=== PATIENT | male | born 1965 | race Caucasian/White ===

== ENCOUNTER 2021-04-24 18:39 | Inpatient (IN) | payer OTHER ==
[2021-04-24 19:08] VITALS: BMI 34.4
[2021-04-24] MEDS ORDERED: MENTHOL/PHENOL 1 EACH UD MM PRN (20:38)
[2021-04-24] MEDS ORDERED: MAGNESIUM HYDROX 2400MG/30ML ORAL SUSPENSION 30 ML CUP PO PRN (20:38)
[2021-04-24] MEDS ORDERED: NICOTINE POLACRILEX 2 MG GUM BUC PRN (20:38)
[2021-04-24] MEDS ORDERED: IBUPROFEN 400 MG TABLET (FP) PO PRN (20:38)
[2021-04-24] MEDS ORDERED: hydrOXYzine PAMOATE 25 MG CAPSULE (FP) PO PRN (20:38)
[2021-04-24] MEDS ORDERED: BISMUTH SUBSALICYLATE 524 MG/30 ML PO PRN (20:38)
[2021-04-24] MEDS ORDERED: MAGNESIUM CITRATE 300 ML BOTTLE PO PRN (20:38)
[2021-04-24] MEDS ORDERED: MAG HYDROX/AL HYDROX/SIMETH 30 ML UNIT-DOSE CUP PO PRN (20:38)
[2021-04-24] MEDS ORDERED: ACETAMINOPHEN 325 MG TABLET (FP) PO PRN (20:38)
[2021-04-24] MEDS ORDERED: ONDANSETRON *ODT* 4 MG TABLET SL PRN (20:38)
[2021-04-24] MEDS ORDERED: cloNIDine HCL 0.1 MG TABLET PO PRN (20:42)
[2021-04-24] MEDS ORDERED: diazePAM 5 MG TABLET PO PRN (20:42)
[2021-04-24] MEDS ORDERED: methaDONE HCL 10 MG TABLET (FOR DETOX USE ONLY) PO ONE (21:30)
[2021-04-24] MEDS ORDERED: MELATONIN 5 MG TABLETS PO SCH (22:00)
[2021-04-24] MEDS: diazePAM 5 MG TABLET PO SCH (22:04)
[2021-04-24] MEDS: THIAMINE HCL 100 MG TABLET (FP) PO SCH (22:04)
[2021-04-25] MEDS: diazePAM 5 MG TABLET PO SCH ×4 (05:36→22:20)
[2021-04-25] MEDS ORDERED: methaDONE HCL 10 MG TABLET (FOR DETOX USE ONLY) ONE (09:38)
[2021-04-25] MEDS: PRENATAL VITAMINS W/ FOLIC ACID TABLET (FP) PO SCH (10:05)
[2021-04-25] MEDS: METHOCARBAMOL 500 MG TABLET PO PRN (10:05)
[2021-04-25] MEDS: ACETAMINOPHEN 325 MG TABLET (FP) PO PRN ×2 (10:09→17:40)
[2021-04-25 10:18] LABS: HEMATOCRIT 42.2 % (35.4-49); HEMOGLOBIN 14.4 GM/dL (11.7-16.9); MCH 26.9 pg (25.7-33.7); MCHC 34.1 g/dl (32.0-35.9); MEAN PLT VOLUME 9.6 fl (7.5-11.1); PLATELET COUNT 221 10^3/uL (134-434); RBC 5.34 M/mm3 (4.00-5.60); WHITE BLOOD COUNT 15.4 K/mm3 (4.0-10.0)
[2021-04-25 11:26] LABS: CALCIUM 9.4 mg/dL (8.5-10.1)
[2021-04-25 11:27] LABS: ALBUMIN 3.7 g/dl (3.4-5.0); BILIRUBIN,TOTAL 0.5 mg/dL (0.2-1); BLOOD UREA NITROGEN 17.6 mg/dL (7-18)
[2021-04-25 11:28] LABS: TOT PROT 7.2 g/dl (6.4-8.2)
[2021-04-25 11:29] LABS: CREATININE 1.1 mg/dL (0.55-1.3)
[2021-04-25 16:47] LABS: HIV INTERPRETATION NEGATIVE (NEGATIVE)
[2021-04-25] MEDS: THIAMINE HCL 100 MG TABLET (FP) PO SCH (22:19)
[2021-04-25] MEDS: MELATONIN 5 MG TABLETS PO SCH (22:21)
[2021-04-26] MEDS: diazePAM 5 MG TABLET PO SCH ×3 (05:13→22:31)
[2021-04-26] MEDS ORDERED: methaDONE HCL 10 MG TABLET (FOR DETOX USE ONLY) PO ONE (10:00)
[2021-04-26] MEDS: METHOCARBAMOL 500 MG TABLET PO PRN (10:14)
[2021-04-26] MEDS: PRENATAL VITAMINS W/ FOLIC ACID TABLET (FP) PO SCH (10:14)
[2021-04-26] MEDS: LISINOPRIL 10 MG TABLET PO SCH (14:54)
[2021-04-26] MEDS: THIAMINE HCL 100 MG TABLET (FP) PO SCH (22:31)
[2021-04-26] MEDS: MELATONIN 5 MG TABLETS PO SCH (22:33)
[2021-04-27] MEDS: diazePAM 5 MG TABLET PO SCH ×2 (05:35→17:54)
[2021-04-27] MEDS ORDERED: methaDONE HCL 10 MG TABLET (FOR DETOX USE ONLY) ONE (09:47)
[2021-04-27] MEDS: PRENATAL VITAMINS W/ FOLIC ACID TABLET (FP) PO SCH (10:11)
[2021-04-27] MEDS: METHOCARBAMOL 500 MG TABLET PO PRN (10:11)
[2021-04-27] MEDS: LISINOPRIL 10 MG TABLET PO SCH (10:12)
[2021-04-27 11:03] LABS: BASO % 0.3 % (0-2.0); EOS % 3.7 % (0-4.5); HEMATOCRIT 42.2 % (35.4-49); HEMOGLOBIN 14.4 GM/dL (11.7-16.9); LYMPH % 25.9 % (8-40); MCH 27.1 pg (25.7-33.7); MCHC 34.1 g/dl (32.0-35.9); MEAN CELL VOLUME 79.3 fl (80-96); MEAN PLT VOLUME 9.5 fl (7.5-11.1); MONO % 10.4 % (3.8-10.2); NEUT % 59.7 % (42.8-82.8); PLATELET COUNT 197 10^3/uL (134-434); RBC 5.32 M/mm3 (4.00-5.60); RDW 14.2 % (11.9-15.9)
[2021-04-27] MEDS: THIAMINE HCL 100 MG TABLET (FP) PO SCH (22:46)
[2021-04-27] MEDS: MELATONIN 5 MG TABLETS PO SCH (22:46)
[2021-04-28] MEDS ORDERED: diazePAM 5 MG TABLET PO ONE (06:00)
[2021-04-28] MEDS ORDERED: methaDONE HCL 10 MG TABLET (FOR DETOX USE ONLY) PO ONE (10:00)
[2021-04-28] MEDS: LISINOPRIL 10 MG TABLET PO SCH (10:08)
[2021-04-28] MEDS: PRENATAL VITAMINS W/ FOLIC ACID TABLET (FP) PO SCH (10:08)
[2021-04-28] MEDS: METHOCARBAMOL 500 MG TABLET PO PRN ×2 (10:08→22:06)
[2021-04-28] MEDS: THIAMINE HCL 100 MG TABLET (FP) PO SCH (22:06)
[2021-04-28] MEDS: MELATONIN 5 MG TABLETS PO SCH (22:06)
[2021-04-29] MEDS: PRENATAL VITAMINS W/ FOLIC ACID TABLET (FP) PO SCH (09:30)
[2021-04-29] MEDS: LISINOPRIL 10 MG TABLET PO SCH (09:30)
[2021-04-29 09:32] VITALS: BP 151/78; PULSE 79; TEMP 98.5
== END 2021-04-29 11:51 | disposition other institution (70) | DRG 773 ==
LOC: YASAS 18:39 → Y6N 20:13
PROVIDERS: ADMIT Allergy & Immunology; ATTEND Allergy & Immunology
PROC: HZ2ZZZZ Detoxification Services for Substance Abuse Treatment (ICD-10-PCS; principal; 2021-04-24)
DX: F11.23 Opioid dependence with withdrawal (principal); F13.230 Sedative, hypnotic or anxiolytic dependence with withdrawal, uncomplicated; F17.210 Nicotine dependence, cigarettes, uncomplicated; F31.9 Bipolar disorder, unspecified; F19.282 Other psychoactive substance dependence with psychoactive substance-induced sleep disorder; D72.829 Elevated white blood cell count, unspecified; I10 Essential (primary) hypertension; R73.9 Hyperglycemia, unspecified; Z88.8 Allergy status to other drugs, medicaments and biological substances
CPT/HCPCS: 36415; 71046-TC-FY; 80053; 82962; 85025; 85027; 86780; 87389; 93005; 93010; C9803; J0735; U0003; U0005

== ENCOUNTER 2021-04-29 11:55 | Inpatient (IN) | payer OTHER ==
[2021-04-29] MEDS ORDERED: MAG HYDROX/AL HYDROX/SIMETH 30 ML UNIT-DOSE CUP PO PRN (13:20)
[2021-04-29] MEDS ORDERED: P-EPHED 60MG/TRIPROLIDI 2.5MG TABLET PO PRN (13:20)
[2021-04-29] MEDS ORDERED: guaiFENesin 200 MG/10 ML 10 ML UNIT-DOSE CUPS PO PRN (13:20)
[2021-04-29] MEDS ORDERED: MAGNESIUM CITRATE 300 ML BOTTLE PO PRN (13:20)
[2021-04-29] MEDS ORDERED: IBUPROFEN 400 MG TABLET (FP) PO PRN (13:20)
[2021-04-29] MEDS ORDERED: LOPERAMIDE HCL 2 MG CAPSULE PO PRN (13:20)
[2021-04-29] MEDS ORDERED: MENTHOL/PHENOL 1 EACH UD MM PRN (13:20)
[2021-04-29] MEDS ORDERED: MAGNESIUM HYDROX 2400MG/30ML ORAL SUSPENSION 30 ML CUP PO PRN (13:20)
[2021-04-29] MEDS: hydrOXYzine PAMOATE 25 MG CAPSULE (FP) PO PRN ×2 (13:48→21:22)
[2021-04-29] MEDS: THIAMINE HCL 100 MG TABLET (FP) PO SCH (21:21)
[2021-04-29] MEDS: MELATONIN 5 MG TABLETS PO SCH (21:21)
[2021-04-30] MEDS: LISINOPRIL 10 MG TABLET PO SCH (10:09)
[2021-04-30] MEDS: PRENATAL VITAMINS W/ FOLIC ACID TABLET (FP) PO SCH (10:09)
[2021-04-30] MEDS: NICOTINE 7 MG/24 HOURS TOPICAL PATCH TD SCH (10:09)
[2021-04-30] MEDS: hydrOXYzine PAMOATE 25 MG CAPSULE (FP) PO PRN ×2 (10:09→16:45)
[2021-04-30] MEDS: ACETAMINOPHEN 325 MG TABLET (FP) PO PRN (10:10)
[2021-04-30] MEDS: THIAMINE HCL 100 MG TABLET (FP) PO SCH (21:21)
[2021-04-30] MEDS: MELATONIN 5 MG TABLETS PO SCH (21:21)
[2021-05-01] MEDS: hydrOXYzine PAMOATE 25 MG CAPSULE (FP) PO PRN ×2 (06:46→21:21)
[2021-05-01] MEDS: PRENATAL VITAMINS W/ FOLIC ACID TABLET (FP) PO SCH (09:42)
[2021-05-01] MEDS: LISINOPRIL 10 MG TABLET PO SCH (09:42)
[2021-05-01] MEDS: NICOTINE 7 MG/24 HOURS TOPICAL PATCH TD SCH (09:43)
[2021-05-01] MEDS: ACETAMINOPHEN 325 MG TABLET (FP) PO PRN (09:43)
[2021-05-01] MEDS ORDERED: BUPRENORPHINE/NALOXONE 2 MG/0.5 MG FILM PACKET SL ONE (10:29)
[2021-05-01] MEDS ORDERED: BUPRENORPHINE/NALOXONE 4 MG/1 MG FILM PACKET SL ONE (14:00)
[2021-05-01] MEDS: MELATONIN 5 MG TABLETS PO SCH (21:21)
[2021-05-01] MEDS: THIAMINE HCL 100 MG TABLET (FP) PO SCH (21:21)
[2021-05-02] MEDS: hydrOXYzine PAMOATE 25 MG CAPSULE (FP) PO PRN ×2 (06:28→21:15)
[2021-05-02] MEDS: PRENATAL VITAMINS W/ FOLIC ACID TABLET (FP) PO SCH (10:17)
[2021-05-02] MEDS: NICOTINE 7 MG/24 HOURS TOPICAL PATCH TD SCH (10:18)
[2021-05-02] MEDS: BUPRENORPHINE/NALOXONE 4 MG/1 MG FILM PACKET SL SCH ×2 (10:21→21:15)
[2021-05-02] MEDS: LISINOPRIL 10 MG TABLET PO SCH (10:21)
[2021-05-02] MEDS: THIAMINE HCL 100 MG TABLET (FP) PO SCH (21:14)
[2021-05-02] MEDS: MELATONIN 5 MG TABLETS PO SCH (21:14)
[2021-05-03] MEDS: hydrOXYzine PAMOATE 25 MG CAPSULE (FP) PO PRN ×3 (05:51→21:28)
[2021-05-03] MEDS: NICOTINE 10 MG CARTRIDGE (INHALER) IH PRN ×2 (09:50→17:52)
[2021-05-03] MEDS: PRENATAL VITAMINS W/ FOLIC ACID TABLET (FP) PO SCH (09:50)
[2021-05-03] MEDS: LISINOPRIL 10 MG TABLET PO SCH (09:50)
[2021-05-03] MEDS: NICOTINE 7 MG/24 HOURS TOPICAL PATCH TD SCH (09:50)
[2021-05-03] MEDS: BUPRENORPHINE/NALOXONE 4 MG/1 MG FILM PACKET SL SCH ×2 (09:52→21:28)
[2021-05-03] MEDS: THIAMINE HCL 100 MG TABLET (FP) PO SCH (21:27)
[2021-05-03] MEDS: MELATONIN 5 MG TABLETS PO SCH (21:28)
[2021-05-04] MEDS: BUPRENORPHINE/NALOXONE 4 MG/1 MG FILM PACKET SL SCH ×2 (10:06→21:13)
[2021-05-04] MEDS: PRENATAL VITAMINS W/ FOLIC ACID TABLET (FP) PO SCH (10:06)
[2021-05-04] MEDS: hydrOXYzine PAMOATE 25 MG CAPSULE (FP) PO PRN ×2 (10:07→21:13)
[2021-05-04] MEDS: NICOTINE 7 MG/24 HOURS TOPICAL PATCH TD SCH (10:07)
[2021-05-04] MEDS: LISINOPRIL 10 MG TABLET PO SCH (10:07)
[2021-05-04] MEDS: NICOTINE 10 MG CARTRIDGE (INHALER) IH PRN (10:07)
[2021-05-04] MEDS: THIAMINE HCL 100 MG TABLET (FP) PO SCH (21:13)
[2021-05-04] MEDS: MELATONIN 5 MG TABLETS PO SCH (21:13)
[2021-05-05] MEDS: LISINOPRIL 10 MG TABLET PO SCH (09:58)
[2021-05-05] MEDS: PRENATAL VITAMINS W/ FOLIC ACID TABLET (FP) PO SCH (09:58)
[2021-05-05] MEDS: NICOTINE 7 MG/24 HOURS TOPICAL PATCH TD SCH (09:58)
[2021-05-05] MEDS: BUPRENORPHINE/NALOXONE 4 MG/1 MG FILM PACKET SL SCH ×2 (09:58→21:26)
[2021-05-05] MEDS: hydrOXYzine PAMOATE 25 MG CAPSULE (FP) PO PRN (17:41)
[2021-05-05] MEDS: NICOTINE 10 MG CARTRIDGE (INHALER) IH PRN (17:41)
[2021-05-05] MEDS: MELATONIN 5 MG TABLETS PO SCH (21:25)
[2021-05-05] MEDS: THIAMINE HCL 100 MG TABLET (FP) PO SCH (21:25)
[2021-05-06] MEDS: NICOTINE 10 MG CARTRIDGE (INHALER) IH PRN (10:20)
[2021-05-06] MEDS: PRENATAL VITAMINS W/ FOLIC ACID TABLET (FP) PO SCH (10:20)
[2021-05-06] MEDS: NICOTINE 7 MG/24 HOURS TOPICAL PATCH TD SCH (10:21)
[2021-05-06] MEDS: BUPRENORPHINE/NALOXONE 4 MG/1 MG FILM PACKET SL SCH ×2 (10:21→21:19)
[2021-05-06] MEDS: LISINOPRIL 10 MG TABLET PO SCH (10:21)
[2021-05-06] MEDS: hydrOXYzine PAMOATE 25 MG CAPSULE (FP) PO PRN ×2 (10:22→21:19)
[2021-05-06] MEDS: THIAMINE HCL 100 MG TABLET (FP) PO SCH (21:19)
[2021-05-06] MEDS: MELATONIN 5 MG TABLETS PO SCH (21:19)
[2021-05-07] MEDS: NICOTINE 7 MG/24 HOURS TOPICAL PATCH TD SCH (09:26)
[2021-05-07] MEDS: NICOTINE 10 MG CARTRIDGE (INHALER) IH PRN (09:26)
[2021-05-07] MEDS: PRENATAL VITAMINS W/ FOLIC ACID TABLET (FP) PO SCH (09:26)
[2021-05-07] MEDS: BUPRENORPHINE/NALOXONE 4 MG/1 MG FILM PACKET SL SCH ×2 (09:26→21:19)
[2021-05-07] MEDS: LISINOPRIL 10 MG TABLET PO SCH (09:26)
[2021-05-07] MEDS: MELATONIN 5 MG TABLETS PO SCH (21:19)
[2021-05-07] MEDS: THIAMINE HCL 100 MG TABLET (FP) PO SCH (21:19)
[2021-05-08] MEDS: hydrOXYzine PAMOATE 25 MG CAPSULE (FP) PO PRN ×3 (03:23→21:29)
[2021-05-08] MEDS: BUPRENORPHINE/NALOXONE 4 MG/1 MG FILM PACKET SL SCH ×2 (09:43→21:30)
[2021-05-08] MEDS: NICOTINE 10 MG CARTRIDGE (INHALER) IH PRN (09:44)
[2021-05-08] MEDS: PRENATAL VITAMINS W/ FOLIC ACID TABLET (FP) PO SCH (09:44)
[2021-05-08] MEDS: LISINOPRIL 10 MG TABLET PO SCH (09:44)
[2021-05-08] MEDS: NICOTINE 7 MG/24 HOURS TOPICAL PATCH TD SCH (09:47)
[2021-05-08] MEDS: cloNIDine HCL 0.1 MG TABLET PO PRN (16:19)
[2021-05-08] MEDS: THIAMINE HCL 100 MG TABLET (FP) PO SCH (21:29)
[2021-05-08] MEDS: MELATONIN 5 MG TABLETS PO SCH (21:30)
[2021-05-09] MEDS: PRENATAL VITAMINS W/ FOLIC ACID TABLET (FP) PO SCH (10:17)
[2021-05-09] MEDS: NICOTINE 7 MG/24 HOURS TOPICAL PATCH TD SCH (10:17)
[2021-05-09] MEDS: LISINOPRIL 10 MG TABLET PO SCH (10:18)
[2021-05-09] MEDS: BUPRENORPHINE/NALOXONE 4 MG/1 MG FILM PACKET SL SCH ×2 (10:18→21:07)
[2021-05-09] MEDS: hydrOXYzine PAMOATE 25 MG CAPSULE (FP) PO PRN ×2 (10:19→21:07)
[2021-05-09] MEDS: cloNIDine HCL 0.1 MG TABLET PO PRN (21:08)
[2021-05-09] MEDS: SUVOREXANT 10 MG TABLET PO PRN (21:08)
[2021-05-09] MEDS: THIAMINE HCL 100 MG TABLET (FP) PO SCH (21:08)
[2021-05-10] MEDS: LISINOPRIL 10 MG TABLET PO SCH (10:42)
[2021-05-10] MEDS: PRENATAL VITAMINS W/ FOLIC ACID TABLET (FP) PO SCH (10:42)
[2021-05-10] MEDS: NICOTINE 7 MG/24 HOURS TOPICAL PATCH TD SCH (10:42)
[2021-05-10] MEDS: BUPRENORPHINE/NALOXONE 4 MG/1 MG FILM PACKET SL SCH ×2 (10:42→21:14)
[2021-05-10] MEDS: cloNIDine HCL 0.1 MG TABLET PO PRN ×2 (10:43→21:14)
[2021-05-10] MEDS: hydrOXYzine PAMOATE 25 MG CAPSULE (FP) PO PRN ×2 (10:43→21:13)
[2021-05-10] MEDS: NICOTINE 10 MG CARTRIDGE (INHALER) IH PRN ×2 (10:50→18:43)
[2021-05-10] MEDS: THIAMINE HCL 100 MG TABLET (FP) PO SCH (21:13)
[2021-05-10] MEDS: SUVOREXANT 10 MG TABLET PO PRN (21:14)
[2021-05-11] MEDS: PRENATAL VITAMINS W/ FOLIC ACID TABLET (FP) PO SCH (09:59)
[2021-05-11] MEDS: NICOTINE 7 MG/24 HOURS TOPICAL PATCH TD SCH (09:59)
[2021-05-11] MEDS: cloNIDine HCL 0.1 MG TABLET PO PRN ×2 (10:00→21:09)
[2021-05-11] MEDS: hydrOXYzine PAMOATE 25 MG CAPSULE (FP) PO PRN ×2 (10:00→21:09)
[2021-05-11] MEDS: LISINOPRIL 10 MG TABLET PO SCH (10:00)
[2021-05-11] MEDS: BUPRENORPHINE/NALOXONE 4 MG/1 MG FILM PACKET SL SCH ×2 (10:01→21:09)
[2021-05-11] MEDS: NICOTINE 10 MG CARTRIDGE (INHALER) IH PRN ×2 (10:01→18:43)
[2021-05-11] MEDS: THIAMINE HCL 100 MG TABLET (FP) PO SCH (21:09)
[2021-05-11] MEDS: SUVOREXANT 10 MG TABLET PO PRN (21:09)
[2021-05-12] MEDS: PRENATAL VITAMINS W/ FOLIC ACID TABLET (FP) PO SCH (09:50)
[2021-05-12] MEDS: hydrOXYzine PAMOATE 25 MG CAPSULE (FP) PO PRN ×2 (09:50→21:12)
[2021-05-12] MEDS: BUPRENORPHINE/NALOXONE 4 MG/1 MG FILM PACKET SL SCH ×2 (09:51→21:13)
[2021-05-12] MEDS: LISINOPRIL 10 MG TABLET PO SCH (09:51)
[2021-05-12] MEDS: NICOTINE 10 MG CARTRIDGE (INHALER) IH PRN ×2 (09:52→21:12)
[2021-05-12] MEDS: NICOTINE 7 MG/24 HOURS TOPICAL PATCH TD SCH (10:21)
[2021-05-12] MEDS: THIAMINE HCL 100 MG TABLET (FP) PO SCH (21:12)
[2021-05-12] MEDS: cloNIDine HCL 0.1 MG TABLET PO PRN (21:12)
[2021-05-12] MEDS: SUVOREXANT 10 MG TABLET PO PRN (21:13)
[2021-05-13] MEDS: PRENATAL VITAMINS W/ FOLIC ACID TABLET (FP) PO SCH (09:50)
[2021-05-13] MEDS: BUPRENORPHINE/NALOXONE 4 MG/1 MG FILM PACKET SL SCH ×2 (09:50→21:18)
[2021-05-13] MEDS: NICOTINE 7 MG/24 HOURS TOPICAL PATCH TD SCH (09:51)
[2021-05-13] MEDS: hydrOXYzine PAMOATE 25 MG CAPSULE (FP) PO PRN ×2 (09:51→21:17)
[2021-05-13] MEDS: LISINOPRIL 10 MG TABLET PO SCH (09:51)
[2021-05-13] MEDS: NICOTINE 10 MG CARTRIDGE (INHALER) IH PRN (09:52)
[2021-05-13] MEDS: SUVOREXANT 10 MG TABLET PO PRN (21:17)
[2021-05-13] MEDS: THIAMINE HCL 100 MG TABLET (FP) PO SCH (21:17)
[2021-05-14] MEDS: hydrOXYzine PAMOATE 25 MG CAPSULE (FP) PO PRN ×2 (09:59→21:18)
[2021-05-14] MEDS: NICOTINE 7 MG/24 HOURS TOPICAL PATCH TD SCH (09:59)
[2021-05-14] MEDS: PRENATAL VITAMINS W/ FOLIC ACID TABLET (FP) PO SCH (09:59)
[2021-05-14] MEDS: LISINOPRIL 10 MG TABLET PO SCH (10:00)
[2021-05-14] MEDS: NICOTINE 10 MG CARTRIDGE (INHALER) IH PRN ×2 (10:01→21:18)
[2021-05-14] MEDS: BUPRENORPHINE/NALOXONE 4 MG/1 MG FILM PACKET SL SCH ×2 (10:01→21:18)
[2021-05-14] MEDS: SUVOREXANT 10 MG TABLET PO PRN (21:17)
[2021-05-14] MEDS: THIAMINE HCL 100 MG TABLET (FP) PO SCH (21:18)
[2021-05-15] MEDS: NICOTINE 7 MG/24 HOURS TOPICAL PATCH TD SCH (09:57)
[2021-05-15] MEDS: PRENATAL VITAMINS W/ FOLIC ACID TABLET (FP) PO SCH (09:57)
[2021-05-15] MEDS: LISINOPRIL 10 MG TABLET PO SCH (09:58)
[2021-05-15] MEDS: cloNIDine HCL 0.1 MG TABLET PO PRN ×2 (09:58→21:12)
[2021-05-15] MEDS: hydrOXYzine PAMOATE 25 MG CAPSULE (FP) PO PRN ×2 (09:58→21:12)
[2021-05-15] MEDS: BUPRENORPHINE/NALOXONE 4 MG/1 MG FILM PACKET SL SCH ×2 (09:58→21:12)
[2021-05-15] MEDS ORDERED: MODERNA COVID-19 VACC,MRNA/PF 50 MCG/0.25 ML EACH IM ONE (11:00)
[2021-05-15] MEDS: NICOTINE 10 MG CARTRIDGE (INHALER) IH PRN ×2 (11:21→21:13)
[2021-05-15] MEDS: THIAMINE HCL 100 MG TABLET (FP) PO SCH (21:10)
[2021-05-15] MEDS: SUVOREXANT 10 MG TABLET PO PRN (21:11)
[2021-05-15] MEDS ORDERED: SUVOREXANT 10 MG TABLET PO PRN (22:00)
[2021-05-16] MEDS: PRENATAL VITAMINS W/ FOLIC ACID TABLET (FP) PO SCH (09:48)
[2021-05-16] MEDS: NICOTINE 10 MG CARTRIDGE (INHALER) IH PRN (09:49)
[2021-05-16] MEDS: hydrOXYzine PAMOATE 25 MG CAPSULE (FP) PO PRN ×2 (09:49→21:20)
[2021-05-16] MEDS: BUPRENORPHINE/NALOXONE 8 MG/2 MG FILM PACKET SL SCH (09:50)
[2021-05-16] MEDS: NICOTINE 7 MG/24 HOURS TOPICAL PATCH TD SCH (09:50)
[2021-05-16] MEDS: LISINOPRIL 10 MG TABLET PO SCH (11:11)
[2021-05-16] MEDS: THIAMINE HCL 100 MG TABLET (FP) PO SCH (21:19)
[2021-05-16] MEDS: cloNIDine HCL 0.1 MG TABLET PO PRN (21:20)
[2021-05-16] MEDS: SUVOREXANT 10 MG TABLET PO PRN (21:20)
[2021-05-17] MEDS: LISINOPRIL 10 MG TABLET PO SCH (09:53)
[2021-05-17] MEDS: BUPRENORPHINE/NALOXONE 8 MG/2 MG FILM PACKET SL SCH (09:53)
[2021-05-17] MEDS: hydrOXYzine PAMOATE 25 MG CAPSULE (FP) PO PRN ×2 (09:53→21:09)
[2021-05-17] MEDS: cloNIDine HCL 0.1 MG TABLET PO PRN ×2 (09:53→21:10)
[2021-05-17] MEDS: PRENATAL VITAMINS W/ FOLIC ACID TABLET (FP) PO SCH (09:53)
[2021-05-17] MEDS: NICOTINE 10 MG CARTRIDGE (INHALER) IH PRN ×2 (09:54→21:10)
[2021-05-17] MEDS: NICOTINE 7 MG/24 HOURS TOPICAL PATCH TD SCH (09:54)
[2021-05-17] MEDS: SUVOREXANT 10 MG TABLET PO PRN (21:10)
[2021-05-17] MEDS: THIAMINE HCL 100 MG TABLET (FP) PO SCH (21:10)
[2021-05-18] MEDS: PRENATAL VITAMINS W/ FOLIC ACID TABLET (FP) PO SCH (10:02)
[2021-05-18] MEDS: LISINOPRIL 10 MG TABLET PO SCH (10:02)
[2021-05-18] MEDS: NICOTINE 7 MG/24 HOURS TOPICAL PATCH TD SCH (10:02)
[2021-05-18] MEDS: BUPRENORPHINE/NALOXONE 8 MG/2 MG FILM PACKET SL SCH (10:03)
[2021-05-18] MEDS: hydrOXYzine PAMOATE 25 MG CAPSULE (FP) PO PRN ×2 (10:04→21:13)
[2021-05-18] MEDS: NICOTINE 10 MG CARTRIDGE (INHALER) IH PRN ×2 (10:05→21:13)
[2021-05-18] MEDS: cloNIDine HCL 0.1 MG TABLET PO PRN ×2 (12:55→21:12)
[2021-05-18] MEDS: SUVOREXANT 10 MG TABLET PO PRN (21:12)
[2021-05-18] MEDS: THIAMINE HCL 100 MG TABLET (FP) PO SCH (21:13)
[2021-05-19] MEDS: NICOTINE 10 MG CARTRIDGE (INHALER) IH PRN ×3 (09:49→21:12)
[2021-05-19] MEDS: LISINOPRIL 10 MG TABLET PO SCH (09:49)
[2021-05-19] MEDS: PRENATAL VITAMINS W/ FOLIC ACID TABLET (FP) PO SCH (09:49)
[2021-05-19] MEDS: NICOTINE 7 MG/24 HOURS TOPICAL PATCH TD SCH (09:49)
[2021-05-19] MEDS: BUPRENORPHINE/NALOXONE 8 MG/2 MG FILM PACKET SL SCH (09:50)
[2021-05-19] MEDS: hydrOXYzine PAMOATE 25 MG CAPSULE (FP) PO PRN ×2 (09:50→21:12)
[2021-05-19] MEDS: cloNIDine HCL 0.1 MG TABLET PO PRN (17:40)
[2021-05-19] MEDS: THIAMINE HCL 100 MG TABLET (FP) PO SCH (21:12)
[2021-05-19] MEDS: SUVOREXANT 10 MG TABLET PO PRN (21:12)
[2021-05-20] MEDS: NICOTINE 10 MG CARTRIDGE (INHALER) IH PRN ×2 (09:54→21:10)
[2021-05-20] MEDS: BUPRENORPHINE/NALOXONE 8 MG/2 MG FILM PACKET SL SCH (09:54)
[2021-05-20] MEDS: hydrOXYzine PAMOATE 25 MG CAPSULE (FP) PO PRN ×2 (09:55→21:10)
[2021-05-20] MEDS: PRENATAL VITAMINS W/ FOLIC ACID TABLET (FP) PO SCH (09:55)
[2021-05-20] MEDS: LISINOPRIL 10 MG TABLET PO SCH (09:55)
[2021-05-20] MEDS: NICOTINE 7 MG/24 HOURS TOPICAL PATCH TD SCH (09:55)
[2021-05-20] MEDS: THIAMINE HCL 100 MG TABLET (FP) PO SCH (21:09)
[2021-05-20] MEDS: SUVOREXANT 10 MG TABLET PO PRN (21:10)
[2021-05-20] MEDS: cloNIDine HCL 0.1 MG TABLET PO PRN (21:10)
[2021-05-21] MEDS: PRENATAL VITAMINS W/ FOLIC ACID TABLET (FP) PO SCH (09:41)
[2021-05-21] MEDS: BUPRENORPHINE/NALOXONE 8 MG/2 MG FILM PACKET SL SCH (09:41)
[2021-05-21] MEDS: LISINOPRIL 10 MG TABLET PO SCH (09:41)
[2021-05-21] MEDS: NICOTINE 7 MG/24 HOURS TOPICAL PATCH TD SCH (09:41)
[2021-05-21] MEDS: NICOTINE 10 MG CARTRIDGE (INHALER) IH PRN (09:41)
[2021-05-21] MEDS: hydrOXYzine PAMOATE 25 MG CAPSULE (FP) PO PRN ×2 (09:42→21:08)
[2021-05-21] MEDS: THIAMINE HCL 100 MG TABLET (FP) PO SCH (21:08)
[2021-05-21] MEDS: cloNIDine HCL 0.1 MG TABLET PO PRN (21:08)
[2021-05-21] MEDS: SUVOREXANT 10 MG TABLET PO PRN (21:08)
[2021-05-22] MEDS: ACETAMINOPHEN 325 MG TABLET (FP) PO PRN (06:33)
[2021-05-22] MEDS: PRENATAL VITAMINS W/ FOLIC ACID TABLET (FP) PO SCH (09:59)
[2021-05-22] MEDS: BUPRENORPHINE/NALOXONE 8 MG/2 MG FILM PACKET SL SCH (09:59)
[2021-05-22] MEDS: NICOTINE 7 MG/24 HOURS TOPICAL PATCH TD SCH (09:59)
[2021-05-22] MEDS: LISINOPRIL 10 MG TABLET PO SCH (09:59)
[2021-05-22] MEDS: cloNIDine HCL 0.1 MG TABLET PO PRN ×2 (10:00→21:29)
[2021-05-22] MEDS: hydrOXYzine PAMOATE 25 MG CAPSULE (FP) PO PRN ×2 (10:00→21:29)
[2021-05-22] MEDS: NICOTINE 10 MG CARTRIDGE (INHALER) IH PRN ×2 (10:01→16:47)
[2021-05-22] MEDS: SUVOREXANT 10 MG TABLET PO PRN (21:28)
[2021-05-22] MEDS: THIAMINE HCL 100 MG TABLET (FP) PO SCH (21:29)
[2021-05-23] MEDS: LISINOPRIL 10 MG TABLET PO SCH (09:53)
[2021-05-23] MEDS: cloNIDine HCL 0.1 MG TABLET PO PRN ×2 (09:53→21:03)
[2021-05-23] MEDS: PRENATAL VITAMINS W/ FOLIC ACID TABLET (FP) PO SCH (09:53)
[2021-05-23] MEDS: BUPRENORPHINE/NALOXONE 8 MG/2 MG FILM PACKET SL SCH (09:54)
[2021-05-23] MEDS: hydrOXYzine PAMOATE 25 MG CAPSULE (FP) PO PRN ×2 (09:54→21:03)
[2021-05-23] MEDS: NICOTINE 7 MG/24 HOURS TOPICAL PATCH TD SCH (11:16)
[2021-05-23] MEDS: THIAMINE HCL 100 MG TABLET (FP) PO SCH (21:03)
[2021-05-23] MEDS: SUVOREXANT 10 MG TABLET PO PRN (21:04)
[2021-05-23] MEDS: NICOTINE 10 MG CARTRIDGE (INHALER) IH PRN (21:04)
[2021-05-24] MEDS: BUPRENORPHINE/NALOXONE 8 MG/2 MG FILM PACKET SL SCH (09:51)
[2021-05-24] MEDS: PRENATAL VITAMINS W/ FOLIC ACID TABLET (FP) PO SCH (09:51)
[2021-05-24] MEDS: LISINOPRIL 10 MG TABLET PO SCH (09:52)
[2021-05-24] MEDS: cloNIDine HCL 0.1 MG TABLET PO PRN ×2 (09:53→21:08)
[2021-05-24] MEDS: hydrOXYzine PAMOATE 25 MG CAPSULE (FP) PO PRN ×2 (09:56→21:08)
[2021-05-24] MEDS: NICOTINE 7 MG/24 HOURS TOPICAL PATCH TD SCH (10:44)
[2021-05-24] MEDS: NICOTINE 10 MG CARTRIDGE (INHALER) IH PRN (16:49)
[2021-05-24] MEDS: THIAMINE HCL 100 MG TABLET (FP) PO SCH (21:08)
[2021-05-24] MEDS: SUVOREXANT 10 MG TABLET PO PRN (21:09)
[2021-05-25] MEDS: LISINOPRIL 10 MG TABLET PO SCH (09:44)
[2021-05-25] MEDS: PRENATAL VITAMINS W/ FOLIC ACID TABLET (FP) PO SCH (09:44)
[2021-05-25] MEDS: NICOTINE 7 MG/24 HOURS TOPICAL PATCH TD SCH (09:44)
[2021-05-25] MEDS: BUPRENORPHINE/NALOXONE 8 MG/2 MG FILM PACKET SL SCH (09:44)
[2021-05-25] MEDS: cloNIDine HCL 0.1 MG TABLET PO PRN ×2 (09:45→21:03)
[2021-05-25] MEDS: NICOTINE 10 MG CARTRIDGE (INHALER) IH PRN (09:46)
[2021-05-25] MEDS: THIAMINE HCL 100 MG TABLET (FP) PO SCH (21:02)
[2021-05-25] MEDS: SUVOREXANT 10 MG TABLET PO PRN (21:03)
[2021-05-25] MEDS: hydrOXYzine PAMOATE 25 MG CAPSULE (FP) PO PRN (21:03)
[2021-05-26] MEDS: BUPRENORPHINE/NALOXONE 8 MG/2 MG FILM PACKET SL SCH (09:31)
[2021-05-26] MEDS: PRENATAL VITAMINS W/ FOLIC ACID TABLET (FP) PO SCH (09:31)
[2021-05-26] MEDS: NICOTINE 7 MG/24 HOURS TOPICAL PATCH TD SCH (09:31)
[2021-05-26] MEDS: hydrOXYzine PAMOATE 25 MG CAPSULE (FP) PO PRN ×2 (09:32→21:11)
[2021-05-26] MEDS: NICOTINE 10 MG CARTRIDGE (INHALER) IH PRN ×2 (09:32→21:11)
[2021-05-26] MEDS: LISINOPRIL 10 MG TABLET PO SCH (10:05)
[2021-05-26] MEDS: cloNIDine HCL 0.1 MG TABLET PO PRN ×2 (10:06→21:11)
[2021-05-26] MEDS: THIAMINE HCL 100 MG TABLET (FP) PO SCH (21:11)
[2021-05-26] MEDS: SUVOREXANT 10 MG TABLET PO PRN (21:11)
[2021-05-27] MEDS: BUPRENORPHINE/NALOXONE 8 MG/2 MG FILM PACKET SL SCH (09:35)
[2021-05-27] MEDS: LISINOPRIL 10 MG TABLET PO SCH (09:36)
[2021-05-27] MEDS: PRENATAL VITAMINS W/ FOLIC ACID TABLET (FP) PO SCH (09:36)
[2021-05-27] MEDS: NICOTINE 7 MG/24 HOURS TOPICAL PATCH TD SCH (09:36)
[2021-05-27] MEDS: hydrOXYzine PAMOATE 25 MG CAPSULE (FP) PO PRN ×2 (09:36→21:32)
[2021-05-27] MEDS: NICOTINE 10 MG CARTRIDGE (INHALER) IH PRN ×2 (09:36→21:34)
[2021-05-27] MEDS: THIAMINE HCL 100 MG TABLET (FP) PO SCH (21:32)
[2021-05-27] MEDS: SUVOREXANT 10 MG TABLET PO PRN (21:33)
[2021-05-27] MEDS: cloNIDine HCL 0.1 MG TABLET PO PRN (21:34)
[2021-05-28] MEDS: PRENATAL VITAMINS W/ FOLIC ACID TABLET (FP) PO SCH (09:32)
[2021-05-28] MEDS: hydrOXYzine PAMOATE 25 MG CAPSULE (FP) PO PRN ×2 (09:32→21:28)
[2021-05-28] MEDS: BUPRENORPHINE/NALOXONE 8 MG/2 MG FILM PACKET SL SCH (09:32)
[2021-05-28] MEDS: LISINOPRIL 10 MG TABLET PO SCH (09:32)
[2021-05-28] MEDS: cloNIDine HCL 0.1 MG TABLET PO PRN (09:33)
[2021-05-28] MEDS: NICOTINE 7 MG/24 HOURS TOPICAL PATCH TD SCH (09:34)
[2021-05-28] MEDS: NICOTINE 10 MG CARTRIDGE (INHALER) IH PRN ×2 (09:34→21:30)
[2021-05-28] MEDS: THIAMINE HCL 100 MG TABLET (FP) PO SCH (21:28)
[2021-05-28] MEDS ORDERED: SUVOREXANT 10 MG TABLET PO PRN (22:00)
[2021-05-29 07:22] VITALS: BP 116/72; PULSE 68; TEMP 98.6
[2021-05-29] MEDS: PRENATAL VITAMINS W/ FOLIC ACID TABLET (FP) PO SCH (09:27)
[2021-05-29] MEDS: LISINOPRIL 10 MG TABLET PO SCH (09:27)
[2021-05-29] MEDS: BUPRENORPHINE/NALOXONE 8 MG/2 MG FILM PACKET SL SCH (09:27)
[2021-05-29] MEDS: NICOTINE 7 MG/24 HOURS TOPICAL PATCH TD SCH (09:28)
== END 2021-05-29 09:30 | disposition home or self-care (01) | DRG 772 ==
LOC: YASAS 11:55 → Y3W 11:56
PROVIDERS: ADMIT Allergy & Immunology; ATTEND Allergy & Immunology
PROC: HZ42ZZZ Group Counseling for Substance Abuse Treatment, Cognitive-Behavioral (ICD-10-PCS; principal; 2021-04-29)
DX: F11.20 Opioid dependence, uncomplicated (principal); F13.20 Sedative, hypnotic or anxiolytic dependence, uncomplicated; F17.210 Nicotine dependence, cigarettes, uncomplicated; F31.9 Bipolar disorder, unspecified; F19.282 Other psychoactive substance dependence with psychoactive substance-induced sleep disorder; I10 Essential (primary) hypertension; Z56.0 Unemployment, unspecified; Z59.00 Homelessness unspecified
CPT/HCPCS: 0013A; 82962; 91301; J0735

== ENCOUNTER 2022-05-24 13:33 | Inpatient (IN) | payer OTHER ==
[2022-05-24] MEDS ORDERED: IBUPROFEN 600 MG TABLET (FP) PO PRN (14:46)
[2022-05-24] MEDS ORDERED: POLYETHYLENE GLYCOL (HEALTHYLAX) 3350 17 GM PACKET PO PRN (14:46)
[2022-05-24] MEDS ORDERED: BISMUTH SUBSALICYLATE 262 MG/15 ML BTL PO PRN (14:46)
[2022-05-24] MEDS ORDERED: LOPERAMIDE HCL 2 MG CAPSULE PO PRN (14:46)
[2022-05-24] MEDS ORDERED: BUPRENORPHINE HCL 150 MCG, BUPRENORPHINE HCL 75 MCG BC PRN (14:46)
[2022-05-24] MEDS ORDERED: NALOXONE HCL (KLOXXADO) 8 MG SPRAY NS PRN (14:46)
[2022-05-24] MEDS ORDERED: ACETAMINOPHEN 325 MG TABLET (FP) PO PRN ×2 (14:46)
[2022-05-24] MEDS ORDERED: hydrOXYzine PAMOATE 25 MG CAPSULE (FP) PO PRN (14:46)
[2022-05-24] MEDS ORDERED: BUPRENORPHINE HCL 150 MCG, BUPRENORPHINE HCL 75 MCG BC ONE (14:46)
[2022-05-24] MEDS ORDERED: MAGNESIUM HYDROX 2400MG/30ML ORAL SUSPENSION 30 ML CUP PO PRN (14:46)
[2022-05-24] MEDS ORDERED: ONDANSETRON *ODT* 4 MG TABLET SL PRN (14:46)
[2022-05-24] MEDS ORDERED: BENZOCAINE/MENTHOL (CHLORASEPTIC ) LOZENGE MM PRN (14:46)
[2022-05-24] MEDS ORDERED: cloNIDine HCL 0.1 MG TABLET PO ONE (14:46)
[2022-05-24] MEDS ORDERED: IBUPROFEN 400 MG TABLET (FP) PO PRN (14:46)
[2022-05-24] MEDS ORDERED: DICYCLOMINE HCL 10 MG CAPSULE PO PRN (14:46)
[2022-05-24] MEDS ORDERED: MAG HYDROX/AL HYDROX/SIMETH 30 ML UNIT-DOSE CUP PO PRN (14:46)
[2022-05-24] MEDS ORDERED: cloNIDine HCL 0.1 MG TABLET ONE (16:10)
[2022-05-24] MEDS ORDERED: BUPRENORPHINE HCL 150 MCG FILM BC ONE (16:14)
[2022-05-24] MEDS ORDERED: BUPRENORPHINE HCL 75 MCG FILM BC ONE (16:15)
[2022-05-24] MEDS: PRENATAL VITAMINS W/ FOLIC ACID TABLET (FP) PO SCH (17:38)
[2022-05-24] MEDS: LISINOPRIL 10 MG TABLET PO SCH (17:38)
[2022-05-24] MEDS ORDERED: cloNIDine HCL 0.1 MG TABLET PO PRN (18:47)
[2022-05-24] MEDS: MELATONIN 5 MG TABLETS PO SCH (22:28)
[2022-05-24] MEDS: METHOCARBAMOL 500 MG TABLET PO PRN (22:29)
[2022-05-24] MEDS: THIAMINE HCL 100 MG TABLET (FP) PO SCH (22:29)
[2022-05-24] MEDS: diazePAM 5 MG TABLET PO PRN (22:29)
[2022-05-25] MEDS ORDERED: BUPRENORPHINE HCL 150 MCG, BUPRENORPHINE HCL 75 MCG BC PRN
[2022-05-25] MEDS: BUPRENORPHINE HCL 150 MCG, BUPRENORPHINE HCL 75 MCG BC SCH ×2 (05:39→17:06)
[2022-05-25] MEDS: METHOCARBAMOL 500 MG TABLET PO PRN (05:43)
[2022-05-25] MEDS: PRENATAL VITAMINS W/ FOLIC ACID TABLET (FP) PO SCH (09:32)
[2022-05-25] MEDS: LISINOPRIL 10 MG TABLET PO SCH (09:33)
[2022-05-25] MEDS: diazePAM 5 MG TABLET PO PRN ×2 (09:33→17:57)
[2022-05-25 12:40] LABS: ALBUMIN 3.2 g/dl (3.4-5.0); CALCIUM 8.7 mg/dL (8.5-10.1); HEMATOCRIT 41.5 % (35.4-49); HEMOGLOBIN 14.3 GM/dL (11.7-16.9); MCH 27.8 pg (25.7-33.7); MCHC 34.5 g/dl (32.0-35.9); MEAN CELL VOLUME 80.5 fl (80-96); MEAN PLT VOLUME 8.8 fl (7.5-11.1); PLATELET COUNT 213 10^3/uL (134-434); RBC 5.15 M/mm3 (4.00-5.60); WHITE BLOOD COUNT 11.2 K/mm3 (4.0-10.0)
[2022-05-25 12:41] LABS: BLOOD UREA NITROGEN 13.5 mg/dL (7-18)
[2022-05-25 12:43] LABS: CREATININE 0.7 mg/dL (0.55-1.3)
[2022-05-25 12:45] LABS: BILIRUBIN,TOTAL 0.9 mg/dL (0.2-1); TOT PROT 6.4 g/dl (6.4-8.2)
[2022-05-25 20:55] VITALS: RESP 18
[2022-05-25] MEDS: MELATONIN 5 MG TABLETS PO SCH (22:25)
[2022-05-25] MEDS: THIAMINE HCL 100 MG TABLET (FP) PO SCH (22:26)
[2022-05-26] MEDS: diazePAM 5 MG TABLET PO PRN ×2 (01:23→07:24)
[2022-05-26] MEDS ORDERED: BUPRENORPHINE HCL 450 MCG FILM BC SCH (06:00)
[2022-05-26 07:02] VITALS: PULSE 83
[2022-05-26 09:44] VITALS: BP 125/75; TEMP 98.6
[2022-05-26] MEDS: PRENATAL VITAMINS W/ FOLIC ACID TABLET (FP) PO SCH (10:18)
[2022-05-26] MEDS: LISINOPRIL 10 MG TABLET PO SCH (10:18)
[2022-05-26] MEDS: METHOCARBAMOL 500 MG TABLET PO PRN (10:19)
[2022-05-27] MEDS ORDERED: BUPRENORPHINE/NALOXONE 4 MG/1 MG FILM PACKET SL SCH (06:00)
[2022-05-28] MEDS ORDERED: BUPRENORPHINE/NALOXONE 8 MG/2 MG FILM PACKET SL ONE (06:00)
== END 2022-05-26 12:59 | disposition left against medical advice (07) | DRG 770 ==
LOC: YASAS 13:33 → Y3N 14:57
PROVIDERS: ADMIT Allergy & Immunology; ATTEND Surgery
PROC: HZ2ZZZZ Detoxification Services for Substance Abuse Treatment (ICD-10-PCS; principal; 2022-05-24)
DX: F11.23 Opioid dependence with withdrawal (principal); F13.230 Sedative, hypnotic or anxiolytic dependence with withdrawal, uncomplicated; F17.210 Nicotine dependence, cigarettes, uncomplicated; F41.9 Anxiety disorder, unspecified; F31.9 Bipolar disorder, unspecified; I10 Essential (primary) hypertension; Z88.8 Allergy status to other drugs, medicaments and biological substances; Z86.59 Personal history of other mental and behavioral disorders; Z91.51 Personal history of suicidal behavior; Z56.0 Unemployment, unspecified; Z59.00 Homelessness unspecified
CPT/HCPCS: 36415; 71046-TC-FY; 80053; 85027; 86780; 93005; 93010; C9803-CS; U0003; U0005

== ENCOUNTER 2022-07-15 09:12 | Inpatient (IN) | payer OTHER ==
[2022-07-15 09:49] VITALS: BMI 36.2
[2022-07-15] MEDS ORDERED: DICYCLOMINE HCL 10 MG CAPSULE PO PRN (11:22)
[2022-07-15] MEDS ORDERED: IBUPROFEN 600 MG TABLET (FP) PO PRN (11:22)
[2022-07-15] MEDS ORDERED: POLYETHYLENE GLYCOL (HEALTHYLAX) 3350 17 GM PACKET PO PRN (11:22)
[2022-07-15] MEDS ORDERED: ONDANSETRON *ODT* 4 MG TABLET SL PRN (11:22)
[2022-07-15] MEDS ORDERED: cloNIDine HCL 0.1 MG TABLET PO PRN (11:22)
[2022-07-15] MEDS ORDERED: MAGNESIUM HYDROX 2400MG/30ML ORAL SUSPENSION 30 ML CUP PO PRN (11:22)
[2022-07-15] MEDS ORDERED: IBUPROFEN 400 MG TABLET (FP) PO PRN (11:22)
[2022-07-15] MEDS ORDERED: ACETAMINOPHEN 325 MG TABLET (FP) PO PRN ×2 (11:22)
[2022-07-15] MEDS ORDERED: methaDONE HCL 10 MG TABLET (FOR DETOX USE ONLY) PO ONE (11:22)
[2022-07-15] MEDS ORDERED: MAG HYDROX/AL HYDROX/SIMETH 30 ML UNIT-DOSE CUP PO PRN (11:22)
[2022-07-15] MEDS ORDERED: LOPERAMIDE HCL 2 MG CAPSULE PO PRN (11:22)
[2022-07-15] MEDS ORDERED: BENZOCAINE/MENTHOL (CHLORASEPTIC ) LOZENGE MM PRN (11:22)
[2022-07-15] MEDS ORDERED: NALOXONE HCL (KLOXXADO) 8 MG SPRAY NS PRN (11:22)
[2022-07-15] MEDS ORDERED: AMMONIUM LACTATE 12% LOTION 225 GM BOTTLE TP PRN (11:28)
[2022-07-15] MEDS ORDERED: diazePAM 5 MG TABLET ONE (11:47)
[2022-07-15] MEDS ORDERED: methaDONE HCL 10 MG TABLET (FOR DETOX USE ONLY) ONE (11:48)
[2022-07-15] MEDS: diazePAM 5 MG TABLET PO SCH ×3 (11:57→22:11)
[2022-07-15] MEDS: BISMUTH SUBSALICYLATE 524 MG/30 ML PO PRN (17:31)
[2022-07-15] MEDS ORDERED: MELATONIN 5 MG TABLETS PO SCH (22:00)
[2022-07-15] MEDS: MELATONIN 5 MG TABLETS PO SCH (22:10)
[2022-07-15] MEDS: THIAMINE HCL 100 MG TABLET (FP) PO SCH (22:10)
[2022-07-15] MEDS: METHOCARBAMOL 500 MG TABLET PO PRN (22:14)
[2022-07-16] MEDS: diazePAM 5 MG TABLET PO SCH ×4 (05:40→22:36)
[2022-07-16] MEDS: PRENATAL VITAMINS W/ FOLIC ACID TABLET (FP) PO SCH (10:18)
[2022-07-16] MEDS: LISINOPRIL 10 MG TABLET PO SCH (10:18)
[2022-07-16] MEDS: METHOCARBAMOL 500 MG TABLET PO PRN (10:18)
[2022-07-16 14:06] LABS: HEMATOCRIT 37.3 % (35.4-49); HEMOGLOBIN 12.6 GM/dL (11.7-16.9); MCH 27.1 pg (25.7-33.7); MCHC 33.7 g/dl (32.0-35.9); MEAN CELL VOLUME 80.6 fl (80-96); MEAN PLT VOLUME 8.4 fl (7.5-11.1); PLATELET COUNT 303 10^3/uL (134-434); RBC 4.63 M/mm3 (4.00-5.60); RDW 12.5 % (11.9-15.9); WHITE BLOOD COUNT 12.4 K/mm3 (4.0-10.0)
[2022-07-16] MEDS: diazePAM 5 MG TABLET PO PRN ×2 (14:46→21:05)
[2022-07-16 15:04] LABS: BLOOD UREA NITROGEN 15.6 mg/dL (7-18); CALCIUM 8.3 mg/dL (8.5-10.1)
[2022-07-16 15:06] LABS: BILIRUBIN,TOTAL 0.3 mg/dL (0.2-1); CREATININE 0.8 mg/dL (0.55-1.3); TOT PROT 6.1 g/dl (6.4-8.2)
[2022-07-16] MEDS: MELATONIN 5 MG TABLETS PO SCH (21:05)
[2022-07-16] MEDS: THIAMINE HCL 100 MG TABLET (FP) PO SCH (21:06)
[2022-07-17] MEDS: diazePAM 5 MG TABLET PO SCH ×3 (05:53→23:00)
[2022-07-17] MEDS ORDERED: methaDONE HCL 10 MG TABLET (FOR DETOX USE ONLY) PO ONE (10:00)
[2022-07-17] MEDS: PRENATAL VITAMINS W/ FOLIC ACID TABLET (FP) PO SCH (10:21)
[2022-07-17] MEDS: METHOCARBAMOL 500 MG TABLET PO PRN (10:21)
[2022-07-17] MEDS: LISINOPRIL 10 MG TABLET PO SCH (10:21)
[2022-07-17] MEDS: diazePAM 5 MG TABLET PO PRN ×2 (10:22→20:30)
[2022-07-17 10:48] LABS: BASO % 0.4 % (0-2.0); EOS % 5.4 % (0-4.5); HEMATOCRIT 36.2 % (35.4-49); HEMOGLOBIN 12.6 GM/dL (11.7-16.9); LYMPH % 22.5 % (8-40); MCH 28.1 pg (25.7-33.7); MCHC 34.9 g/dl (32.0-35.9); MEAN CELL VOLUME 80.4 fl (80-96); MEAN PLT VOLUME 8.1 fl (7.5-11.1); MONO % 8.1 % (3.8-10.2); NEUT % 63.6 % (42.8-82.8); PLATELET COUNT 287 10^3/uL (134-434); RDW 12.2 % (11.9-15.9); WHITE BLOOD COUNT 12.1 K/mm3 (4.0-10.0)
[2022-07-17] MEDS: INSULIN SLIDING SCALE (NOVOLOG) 1 VIAL SQ SCH (19:04)
[2022-07-17] MEDS: THIAMINE HCL 100 MG TABLET (FP) PO SCH (23:00)
[2022-07-17] MEDS: MELATONIN 5 MG TABLETS PO SCH (23:00)
[2022-07-18] MEDS: diazePAM 5 MG TABLET PO SCH ×2 (05:57→17:39)
[2022-07-18] MEDS: INSULIN SLIDING SCALE (NOVOLOG) 1 VIAL SQ SCH ×2 (07:43→17:37)
[2022-07-18] MEDS: LISINOPRIL 10 MG TABLET PO SCH (10:21)
[2022-07-18] MEDS: PRENATAL VITAMINS W/ FOLIC ACID TABLET (FP) PO SCH (10:21)
[2022-07-18 15:21] LABS: URINE APPEARANCE CLOUDY; URINE BILIRUBIN NEGATIVE (NEGATIVE); URINE COLOR YELLOW; URINE GLUCOSE (UA) TRACE (NEGATIVE); URINE KETONE NEGATIVE (NEGATIVE); URINE LEUK ESTERASE NEGATIVE (NEGATIVE); URINE NITRITE NEGATIVE (NEGATIVE); URINE PROTEIN NEGATIVE (NEGATIVE); URINE UROBILINOGEN 0.2 mg/dL (0.2-1.0)
[2022-07-18] MEDS: THIAMINE HCL 100 MG TABLET (FP) PO SCH (22:16)
[2022-07-18] MEDS: MELATONIN 5 MG TABLETS PO SCH (22:16)
[2022-07-18] MEDS: METHOCARBAMOL 500 MG TABLET PO PRN (22:17)
[2022-07-19] MEDS ORDERED: diazePAM 5 MG TABLET PO ONE ×2 (06:00→19:42)
[2022-07-19] MEDS: INSULIN SLIDING SCALE (NOVOLOG) 1 VIAL SQ SCH ×2 (06:19→17:02)
[2022-07-19] MEDS ORDERED: methaDONE HCL 10 MG TABLET (FOR DETOX USE ONLY) PO ONE (10:00)
[2022-07-19] MEDS: METHOCARBAMOL 500 MG TABLET PO PRN ×2 (10:13→22:34)
[2022-07-19] MEDS: PRENATAL VITAMINS W/ FOLIC ACID TABLET (FP) PO SCH (10:13)
[2022-07-19] MEDS: LISINOPRIL 10 MG TABLET PO SCH (10:13)
[2022-07-19] MEDS: BISMUTH SUBSALICYLATE 524 MG/30 ML PO PRN (10:16)
[2022-07-19 13:14] VITALS: RESP 18
[2022-07-19 13:43] LABS: HEMATOCRIT 40.9 % (35.4-49); HEMOGLOBIN 14.1 GM/dL (11.7-16.9); MCH 27.8 pg (25.7-33.7); MCHC 34.6 g/dl (32.0-35.9); MEAN CELL VOLUME 80.4 fl (80-96); MEAN PLT VOLUME 7.7 fl (7.5-11.1); PLATELET COUNT 317 10^3/uL (134-434); RBC 5.09 M/mm3 (4.00-5.60); RDW 12.4 % (11.9-15.9)
[2022-07-19] MEDS: metFORMIN HCL 500 MG TABLET (FP) PO SCH (17:02)
[2022-07-19] MEDS: MELATONIN 5 MG TABLETS PO SCH (22:34)
[2022-07-19] MEDS: THIAMINE HCL 100 MG TABLET (FP) PO SCH (22:34)
[2022-07-20] MEDS: metFORMIN HCL 500 MG TABLET (FP) PO SCH (06:12)
[2022-07-20] MEDS: INSULIN SLIDING SCALE (NOVOLOG) 1 VIAL SQ SCH ×2 (06:21→12:15)
[2022-07-20 06:43] VITALS: BP 108/62; PULSE 70; TEMP 97.5
[2022-07-20] MEDS: PRENATAL VITAMINS W/ FOLIC ACID TABLET (FP) PO SCH (10:30)
[2022-07-20] MEDS: LISINOPRIL 10 MG TABLET PO SCH (10:30)
[2022-07-20] MEDS ORDERED: INSULIN SLIDING SCALE (NOVOLOG) 1 VIAL SQ ONE (12:31)
== END 2022-07-20 13:18 | disposition home or self-care (01) | DRG 773 ==
LOC: YASAS 09:12 → Y3N 11:37
PROVIDERS: ADMIT Allergy & Immunology; ATTEND Surgery
PROC: HZ2ZZZZ Detoxification Services for Substance Abuse Treatment (ICD-10-PCS; principal; 2022-07-15)
DX: F11.23 Opioid dependence with withdrawal (principal); F13.230 Sedative, hypnotic or anxiolytic dependence with withdrawal, uncomplicated; F14.20 Cocaine dependence, uncomplicated; F17.210 Nicotine dependence, cigarettes, uncomplicated; F19.282 Other psychoactive substance dependence with psychoactive substance-induced sleep disorder; F31.9 Bipolar disorder, unspecified; F41.9 Anxiety disorder, unspecified; D72.829 Elevated white blood cell count, unspecified; I10 Essential (primary) hypertension; E11.9 Type 2 diabetes mellitus without complications; Z79.84 Long term (current) use of oral hypoglycemic drugs; Z88.8 Allergy status to other drugs, medicaments and biological substances
CPT/HCPCS: 36415; 80053; 81003; 82962; 83036; 85025; 85027; 86780; C9803-CS; U0003; U0005

== ENCOUNTER 2022-10-23 12:29 | Inpatient (IN) | payer OTHER ==
[2022-10-23 14:01] VITALS: BMI 31.6
[2022-10-23] MEDS ORDERED: LOPERAMIDE HCL 2 MG CAPSULE PO PRN (14:38)
[2022-10-23] MEDS ORDERED: cloNIDine HCL 0.1 MG TABLET PO PRN (14:38)
[2022-10-23] MEDS ORDERED: BENZOCAINE/MENTHOL (CHLORASEPTIC ) LOZENGE MM PRN (14:38)
[2022-10-23] MEDS ORDERED: NICOTINE 10 MG CARTRIDGE (INHALER) IH PRN (14:38)
[2022-10-23] MEDS ORDERED: ONDANSETRON *ODT* 4 MG TABLET SL PRN (14:38)
[2022-10-23] MEDS ORDERED: MAGNESIUM HYDROX 2400MG/30ML ORAL SUSPENSION 30 ML CUP PO PRN (14:38)
[2022-10-23] MEDS ORDERED: IBUPROFEN 400 MG TABLET (FP) PO PRN (14:38)
[2022-10-23] MEDS ORDERED: BISMUTH SUBSALICYLATE 262 MG/15 ML BTL PO PRN (14:38)
[2022-10-23] MEDS ORDERED: NALOXONE HCL (KLOXXADO) 8 MG SPRAY NS PRN (14:38)
[2022-10-23] MEDS ORDERED: MAG HYDROX/AL HYDROX/SIMETH 30 ML UNIT-DOSE CUP PO PRN (14:38)
[2022-10-23] MEDS ORDERED: NALOXONE HCL 0.4 MG/ML VIAL IM PRN (14:38)
[2022-10-23] MEDS ORDERED: COLLOIDAL OATMEAL 1 BAR EACH TP PRN (14:38)
[2022-10-23] MEDS ORDERED: IBUPROFEN 600 MG TABLET (FP) PO PRN (14:38)
[2022-10-23] MEDS ORDERED: BENZONATATE 200 MG CAPSULE PO PRN (14:38)
[2022-10-23] MEDS ORDERED: POLYETHYLENE GLYCOL (HEALTHYLAX) 3350 17 GM PACKET PO PRN (14:38)
[2022-10-23] MEDS ORDERED: AMMONIUM LACTATE 12% LOTION 225 GM BOTTLE TP PRN (14:38)
[2022-10-23] MEDS ORDERED: guaiFENesin 600 MG TABLET.ER (FP) PO PRN (14:38)
[2022-10-23] MEDS ORDERED: methaDONE HCL 10 MG TABLET (FOR DETOX USE ONLY) PO ONE (14:38)
[2022-10-23] MEDS ORDERED: ACETAMINOPHEN 325 MG TABLET (FP) PO PRN (14:38)
[2022-10-23] MEDS ORDERED: DICYCLOMINE HCL 10 MG CAPSULE PO PRN (14:38)
[2022-10-23] MEDS: diazePAM 5 MG TABLET PO PRN ×2 (14:52→22:23)
[2022-10-23] MEDS: LISINOPRIL 20 MG TABLET PO SCH (15:52)
[2022-10-23] MEDS: THIAMINE HCL 100 MG TABLET (FP) PO SCH (22:23)
[2022-10-23] MEDS: METHOCARBAMOL 500 MG TABLET PO PRN (22:23)
[2022-10-23] MEDS: MELATONIN 5 MG TABLETS PO SCH (22:23)
[2022-10-24] MEDS: diazePAM 5 MG TABLET PO PRN ×2 (05:24→10:12)
[2022-10-24] MEDS: PRENATAL VITAMINS W/ FOLIC ACID TABLET (FP) PO SCH (10:09)
[2022-10-24] MEDS: LISINOPRIL 20 MG TABLET PO SCH (10:09)
[2022-10-24 11:21] LABS: POTASSIUM 4.5 mmol/L (3.5-5.1)
[2022-10-24 11:24] LABS: ALBUMIN 3.7 g/dl (3.4-5.0)
[2022-10-24 11:25] LABS: BLOOD UREA NITROGEN 9.9 mg/dL (7-18); CALCIUM 8.9 mg/dL (8.5-10.1)
[2022-10-24 11:27] LABS: CREATININE 0.9 mg/dL (0.55-1.3)
[2022-10-24 11:29] LABS: BILIRUBIN,TOTAL 0.8 mg/dL (0.2-1); TOT PROT 7.9 g/dl (6.4-8.2)
[2022-10-24 11:32] LABS: HEMATOCRIT 44.6 % (35.4-49); HEMOGLOBIN 15.8 GM/dL (11.7-16.9); MCH 27.4 pg (25.7-33.7); MCHC 35.4 g/dl (32.0-35.9); MEAN CELL VOLUME 77.4 fl (80-96); MEAN PLT VOLUME 9.2 fl (7.5-11.1); PLATELET COUNT 331 10^3/uL (134-434); RBC 5.76 M/mm3 (4.00-5.60); RDW 14.6 % (11.9-15.9); WHITE BLOOD COUNT 14.1 K/mm3 (4.0-10.0)
[2022-10-24 12:20] LABS: HIV INTERPRETATION NEGATIVE (NEGATIVE)
[2022-10-24] MEDS ORDERED: diazePAM 5 MG TABLET PO ONE (14:03)
[2022-10-24] MEDS: LACTULOSE 20 GM/30 ML UDC (FOR ORAL USE ONLY) PO SCH ×2 (14:23→22:31)
[2022-10-24] MEDS ORDERED: QUEtiapine FUMARATE 50 MG TABLET PO ONE (14:34)
[2022-10-24] MEDS: NICOTINE POLACRILEX 2 MG GUM BUC PRN ×2 (15:18→17:48)
[2022-10-24] MEDS: diazePAM 5 MG TABLET PO SCH ×2 (16:58→22:29)
[2022-10-24] MEDS: METHOCARBAMOL 500 MG TABLET PO PRN (16:59)
[2022-10-24] MEDS: THIAMINE HCL 100 MG TABLET (FP) PO SCH (22:29)
[2022-10-24] MEDS: MELATONIN 5 MG TABLETS PO SCH (22:29)
[2022-10-24] MEDS: QUEtiapine FUMARATE 100 MG TABLET (FP) PO SCH (22:29)
[2022-10-25] MEDS: LACTULOSE 20 GM/30 ML UDC (FOR ORAL USE ONLY) PO SCH ×3 (05:13→22:06)
[2022-10-25] MEDS: diazePAM 5 MG TABLET PO SCH ×4 (05:13→22:06)
[2022-10-25] MEDS: METHOCARBAMOL 500 MG TABLET PO PRN (05:16)
[2022-10-25] MEDS: diazePAM 5 MG TABLET PO PRN ×3 (08:51→19:26)
[2022-10-25] MEDS ORDERED: methaDONE HCL 10 MG TABLET (FOR DETOX USE ONLY) PO ONE (10:00)
[2022-10-25] MEDS: PRENATAL VITAMINS W/ FOLIC ACID TABLET (FP) PO SCH (10:05)
[2022-10-25] MEDS: LISINOPRIL 20 MG TABLET PO SCH (10:05)
[2022-10-25] MEDS: NICOTINE POLACRILEX 2 MG GUM BUC PRN (11:13)
[2022-10-25] MEDS: QUEtiapine FUMARATE 100 MG TABLET (FP) PO SCH (22:06)
[2022-10-25] MEDS: THIAMINE HCL 100 MG TABLET (FP) PO SCH (22:06)
[2022-10-25] MEDS: MELATONIN 5 MG TABLETS PO SCH (22:06)
[2022-10-26] MEDS: diazePAM 5 MG TABLET PO SCH ×3 (05:22→21:18)
[2022-10-26] MEDS: LACTULOSE 20 GM/30 ML UDC (FOR ORAL USE ONLY) PO SCH ×2 (05:22→21:19)
[2022-10-26] MEDS: LISINOPRIL 20 MG TABLET PO SCH (09:39)
[2022-10-26] MEDS: PRENATAL VITAMINS W/ FOLIC ACID TABLET (FP) PO SCH (09:39)
[2022-10-26] MEDS: diazePAM 5 MG TABLET PO PRN ×2 (10:02→18:01)
[2022-10-26 10:50] LABS: BASO % 0.3 % (0-2.0); EOS % 3.4 % (0-4.5); HEMATOCRIT 44.7 % (35.4-49); HEMOGLOBIN 15.3 GM/dL (11.7-16.9); LYMPH % 24.4 % (8-40); MCH 26.5 pg (25.7-33.7); MCHC 34.2 g/dl (32.0-35.9); MEAN CELL VOLUME 77.7 fl (80-96); MONO % 11.7 % (3.8-10.2); NEUT % 60.2 % (42.8-82.8); PLATELET COUNT 329 10^3/uL (134-434); RBC 5.75 M/mm3 (4.00-5.60); WHITE BLOOD COUNT 9.9 K/mm3 (4.0-10.0)
[2022-10-26] MEDS: NICOTINE POLACRILEX 2 MG GUM BUC PRN (18:03)
[2022-10-26] MEDS: THIAMINE HCL 100 MG TABLET (FP) PO SCH (21:18)
[2022-10-26] MEDS: QUEtiapine FUMARATE 100 MG TABLET (FP) PO SCH (21:18)
[2022-10-26] MEDS: MELATONIN 5 MG TABLETS PO SCH (21:18)
[2022-10-27] MEDS: LACTULOSE 20 GM/30 ML UDC (FOR ORAL USE ONLY) PO SCH ×2 (05:23→13:57)
[2022-10-27] MEDS ORDERED: diazePAM 5 MG TABLET PO SCH (06:00)
[2022-10-27] MEDS ORDERED: methaDONE HCL 10 MG TABLET (FOR DETOX USE ONLY) PO ONE (10:00)
[2022-10-27] MEDS: LISINOPRIL 20 MG TABLET PO SCH (10:01)
[2022-10-27] MEDS: diazePAM 5 MG TABLET PO PRN (10:01)
[2022-10-27] MEDS: METHOCARBAMOL 500 MG TABLET PO PRN (10:02)
[2022-10-27] MEDS: PRENATAL VITAMINS W/ FOLIC ACID TABLET (FP) PO SCH (10:02)
[2022-10-27 13:05] VITALS: BP 112/62; PULSE 75; RESP 18; TEMP 97.7
[2022-10-27] MEDS ORDERED: LACTULOSE 20 GM/30 ML UDC (FOR ORAL USE ONLY) PO SCH (22:00)
[2022-10-28] MEDS ORDERED: diazePAM 5 MG TABLET PO ONE (06:00)
== END 2022-10-27 14:28 | disposition home or self-care (01) | DRG 773 ==
LOC: YASAS 12:29 → Y3N 15:02
PROVIDERS: ADMIT Allergy & Immunology; ATTEND Surgery
PROC: HZ2ZZZZ Detoxification Services for Substance Abuse Treatment (ICD-10-PCS; principal; 2022-10-23)
DX: F11.23 Opioid dependence with withdrawal (principal); F10.230 Alcohol dependence with withdrawal, uncomplicated; F13.20 Sedative, hypnotic or anxiolytic dependence, uncomplicated; F12.20 Cannabis dependence, uncomplicated; F17.210 Nicotine dependence, cigarettes, uncomplicated; F31.9 Bipolar disorder, unspecified; F41.9 Anxiety disorder, unspecified; I10 Essential (primary) hypertension; G47.00 Insomnia, unspecified; R79.89 Other specified abnormal findings of blood chemistry; Z88.8 Allergy status to other drugs, medicaments and biological substances
CPT/HCPCS: 36415; 80053; 82140; 83036; 85025; 85027; 86780; 87389; 87811; C9803-CS; U0003; U0005

== ENCOUNTER 2022-10-27 14:44 | Inpatient (IN) | payer OTHER ==
[2022-10-27 15:04] VITALS: RESP 18
[2022-10-27] MEDS ORDERED: MAGNESIUM HYDROX 2400MG/30ML ORAL SUSPENSION 30 ML CUP PO PRN (17:42)
[2022-10-27] MEDS ORDERED: NALOXONE HCL 0.4 MG/ML VIAL IVPUSH PRN (17:42)
[2022-10-27] MEDS ORDERED: COLLOIDAL OATMEAL 1 BAR EACH TP PRN (17:42)
[2022-10-27] MEDS ORDERED: ACETAMINOPHEN 325 MG TABLET (FP) PO PRN (17:42)
[2022-10-27] MEDS ORDERED: NALOXONE HCL (KLOXXADO) 8 MG SPRAY NS PRN (17:42)
[2022-10-27] MEDS ORDERED: IBUPROFEN 400 MG TABLET (FP) PO PRN (17:42)
[2022-10-27] MEDS ORDERED: METHOCARBAMOL 500 MG TABLET PO PRN (17:42)
[2022-10-27] MEDS ORDERED: guaiFENesin 600 MG TABLET.ER (FP) PO PRN (17:42)
[2022-10-27] MEDS ORDERED: hydrOXYzine PAMOATE 25 MG CAPSULE (FP) PO PRN (17:42)
[2022-10-27] MEDS ORDERED: LOPERAMIDE HCL 2 MG CAPSULE PO PRN (17:42)
[2022-10-27] MEDS ORDERED: POLYETHYLENE GLYCOL (HEALTHYLAX) 3350 17 GM PACKET PO PRN (17:42)
[2022-10-27] MEDS ORDERED: MAG HYDROX/AL HYDROX/SIMETH 30 ML UNIT-DOSE CUP PO PRN (17:42)
[2022-10-27] MEDS ORDERED: AMMONIUM LACTATE 12% LOTION 225 GM BOTTLE TP PRN (17:42)
[2022-10-27] MEDS ORDERED: BENZOCAINE/MENTHOL (CHLORASEPTIC ) LOZENGE MM PRN (17:42)
[2022-10-27] MEDS ORDERED: IBUPROFEN 600 MG TABLET (FP) PO PRN (17:42)
[2022-10-27] MEDS ORDERED: BENZONATATE 200 MG CAPSULE PO PRN (17:42)
[2022-10-27] MEDS: THIAMINE HCL 100 MG TABLET (FP) PO SCH (21:05)
[2022-10-27] MEDS: MELATONIN 5 MG TABLETS PO SCH (21:05)
[2022-10-27] MEDS: METHOCARBAMOL 500 MG TABLET PO PRN (21:06)
[2022-10-27] MEDS: hydrOXYzine PAMOATE 25 MG CAPSULE (FP) PO PRN (21:07)
[2022-10-28] MEDS: hydrOXYzine PAMOATE 25 MG CAPSULE (FP) PO PRN (10:05)
[2022-10-28] MEDS: PRENATAL VITAMINS W/ FOLIC ACID TABLET (FP) PO SCH (10:06)
[2022-10-28] MEDS: LISINOPRIL 20 MG TABLET PO SCH (10:06)
[2022-10-28] MEDS: THIAMINE HCL 100 MG TABLET (FP) PO SCH (21:26)
[2022-10-28] MEDS: MELATONIN 5 MG TABLETS PO SCH (21:26)
[2022-10-28] MEDS: METHOCARBAMOL 500 MG TABLET PO PRN (21:27)
[2022-10-29] MEDS: PRENATAL VITAMINS W/ FOLIC ACID TABLET (FP) PO SCH (09:51)
[2022-10-29] MEDS: LISINOPRIL 20 MG TABLET PO SCH (09:52)
[2022-10-29] MEDS: hydrOXYzine PAMOATE 25 MG CAPSULE (FP) PO PRN (09:53)
[2022-10-29] MEDS: METHOCARBAMOL 500 MG TABLET PO PRN (09:53)
[2022-10-29] MEDS ORDERED: BUPRENORPHINE/NALOXONE 8 MG/2 MG FILM PACKET SL SCH (11:00)
[2022-10-29] MEDS ORDERED: LACTULOSE 20 GM/30 ML UDC (FOR ORAL USE ONLY) PO PRN (11:04)
[2022-10-29] MEDS ORDERED: BUPRENORPHINE HCL 150 MCG FILM BC ONE (12:30)
[2022-10-29] MEDS: LACTULOSE 20 GM/30 ML UDC (FOR ORAL USE ONLY) PO SCH ×2 (13:55→21:55)
[2022-10-29] MEDS: THIAMINE HCL 100 MG TABLET (FP) PO SCH (21:55)
[2022-10-29] MEDS: MELATONIN 5 MG TABLETS PO SCH (21:55)
[2022-10-30] MEDS: METHOCARBAMOL 500 MG TABLET PO PRN ×2 (06:54→21:22)
[2022-10-30] MEDS: hydrOXYzine PAMOATE 25 MG CAPSULE (FP) PO PRN ×2 (06:55→13:19)
[2022-10-30] MEDS: LACTULOSE 20 GM/30 ML UDC (FOR ORAL USE ONLY) PO SCH ×3 (06:56→21:23)
[2022-10-30] MEDS: PRENATAL VITAMINS W/ FOLIC ACID TABLET (FP) PO SCH (09:45)
[2022-10-30] MEDS: LISINOPRIL 20 MG TABLET PO SCH (09:45)
[2022-10-30] MEDS: BUPRENORPHINE HCL 150 MCG FILM BC SCH ×2 (09:48→21:24)
[2022-10-30] MEDS: THIAMINE HCL 100 MG TABLET (FP) PO SCH (21:22)
[2022-10-30] MEDS: MELATONIN 5 MG TABLETS PO SCH (21:22)
[2022-10-31] MEDS: LACTULOSE 20 GM/30 ML UDC (FOR ORAL USE ONLY) PO SCH (06:15)
[2022-10-31] MEDS: METHOCARBAMOL 500 MG TABLET PO PRN (06:16)
[2022-10-31] MEDS: hydrOXYzine PAMOATE 25 MG CAPSULE (FP) PO PRN ×3 (06:16→21:25)
[2022-10-31] MEDS: PRENATAL VITAMINS W/ FOLIC ACID TABLET (FP) PO SCH (09:45)
[2022-10-31] MEDS: BUPRENORPHINE HCL 150 MCG, BUPRENORPHINE HCL 75 MCG BC SCH ×2 (09:45→21:24)
[2022-10-31] MEDS: LISINOPRIL 20 MG TABLET PO SCH (09:45)
[2022-10-31] MEDS ORDERED: BUPRENORPHINE HCL 75 MCG FILM BC SCH (10:00)
[2022-10-31] MEDS: cloNIDine HCL 0.1 MG TABLET PO PRN (12:11)
[2022-10-31] MEDS: THIAMINE HCL 100 MG TABLET (FP) PO SCH (21:24)
[2022-10-31] MEDS: MELATONIN 5 MG TABLETS PO SCH (21:24)
[2022-11-01] MEDS: BUPRENORPHINE HCL 450 MCG FILM BC SCH ×2 (10:03→21:24)
[2022-11-01] MEDS: PRENATAL VITAMINS W/ FOLIC ACID TABLET (FP) PO SCH (10:03)
[2022-11-01] MEDS: LISINOPRIL 20 MG TABLET PO SCH (10:03)
[2022-11-01] MEDS: hydrOXYzine PAMOATE 25 MG CAPSULE (FP) PO PRN ×2 (10:06→21:23)
[2022-11-01] MEDS: METHOCARBAMOL 500 MG TABLET PO PRN (10:06)
[2022-11-01] MEDS: MELATONIN 5 MG TABLETS PO SCH (21:23)
[2022-11-01] MEDS: THIAMINE HCL 100 MG TABLET (FP) PO SCH (21:23)
[2022-11-02] MEDS: LISINOPRIL 20 MG TABLET PO SCH (10:13)
[2022-11-02] MEDS: BUPRENORPHINE/NALOXONE 2 MG/0.5 MG FILM PACKET SL SCH ×2 (10:13→21:29)
[2022-11-02] MEDS: hydrOXYzine PAMOATE 25 MG CAPSULE (FP) PO PRN ×3 (10:13→21:29)
[2022-11-02] MEDS: PRENATAL VITAMINS W/ FOLIC ACID TABLET (FP) PO SCH (10:14)
[2022-11-02] MEDS: THIAMINE HCL 100 MG TABLET (FP) PO SCH (21:29)
[2022-11-02] MEDS: MELATONIN 5 MG TABLETS PO SCH (21:29)
[2022-11-03] MEDS: PRENATAL VITAMINS W/ FOLIC ACID TABLET (FP) PO SCH (09:56)
[2022-11-03] MEDS: LISINOPRIL 20 MG TABLET PO SCH (09:58)
[2022-11-03] MEDS: BUPRENORPHINE/NALOXONE 2 MG/0.5 MG FILM PACKET SL SCH (09:59)
[2022-11-03] MEDS: cloNIDine HCL 0.1 MG TABLET PO PRN (09:59)
[2022-11-03] MEDS: METHOCARBAMOL 500 MG TABLET PO PRN ×2 (10:00→21:42)
[2022-11-03] MEDS ORDERED: BUPRENORPHINE/NALOXONE 2 MG/0.5 MG FILM PACKET SL ONE (12:05)
[2022-11-03] MEDS: THIAMINE HCL 100 MG TABLET (FP) PO SCH (21:41)
[2022-11-03] MEDS: MELATONIN 5 MG TABLETS PO SCH (21:41)
[2022-11-03] MEDS: hydrOXYzine PAMOATE 25 MG CAPSULE (FP) PO PRN (21:42)
[2022-11-03] MEDS: BUPRENORPHINE/NALOXONE 4 MG/1 MG FILM PACKET SL SCH (21:43)
[2022-11-04] MEDS: NICOTINE 10 MG CARTRIDGE (INHALER) IH PRN (09:51)
[2022-11-04] MEDS: BUPRENORPHINE/NALOXONE 4 MG/1 MG FILM PACKET SL SCH ×2 (09:52→21:48)
[2022-11-04] MEDS: LISINOPRIL 20 MG TABLET PO SCH (09:52)
[2022-11-04] MEDS: PRENATAL VITAMINS W/ FOLIC ACID TABLET (FP) PO SCH (09:52)
[2022-11-04] MEDS: hydrOXYzine PAMOATE 25 MG CAPSULE (FP) PO PRN ×2 (09:53→21:48)
[2022-11-04] MEDS: MELATONIN 5 MG TABLETS PO SCH (21:49)
[2022-11-04] MEDS: THIAMINE HCL 100 MG TABLET (FP) PO SCH (21:49)
[2022-11-05] MEDS: PRENATAL VITAMINS W/ FOLIC ACID TABLET (FP) PO SCH (10:02)
[2022-11-05] MEDS: hydrOXYzine PAMOATE 25 MG CAPSULE (FP) PO PRN (10:03)
[2022-11-05] MEDS: BUPRENORPHINE/NALOXONE 4 MG/1 MG FILM PACKET SL SCH (10:03)
[2022-11-05] MEDS: LISINOPRIL 20 MG TABLET PO SCH (10:03)
[2022-11-05] MEDS: METHOCARBAMOL 500 MG TABLET PO PRN (10:04)
[2022-11-05] MEDS: NICOTINE 10 MG CARTRIDGE (INHALER) IH PRN (10:05)
[2022-11-05] MEDS ORDERED: BUPRENORPHINE/NALOXONE 4 MG/1 MG FILM PACKET SL ONE (11:15)
[2022-11-05] MEDS: INSULIN SLIDING SCALE (NOVOLOG) 1 VIAL SQ SCH (19:13)
[2022-11-05] MEDS: THIAMINE HCL 100 MG TABLET (FP) PO SCH (22:52)
[2022-11-05] MEDS: MELATONIN 5 MG TABLETS PO SCH (22:52)
[2022-11-06] MEDS: INSULIN SLIDING SCALE (NOVOLOG) 1 VIAL SQ SCH ×2 (06:48→17:06)
[2022-11-06] MEDS: NICOTINE 10 MG CARTRIDGE (INHALER) IH PRN ×2 (06:48→15:50)
[2022-11-06] MEDS: METHOCARBAMOL 500 MG TABLET PO PRN ×2 (06:50→15:50)
[2022-11-06] MEDS: hydrOXYzine PAMOATE 25 MG CAPSULE (FP) PO PRN ×2 (06:51→15:50)
[2022-11-06] MEDS: LISINOPRIL 20 MG TABLET PO SCH (09:50)
[2022-11-06] MEDS: BUPRENORPHINE/NALOXONE 8 MG/2 MG FILM PACKET SL SCH (09:50)
[2022-11-06] MEDS: PRENATAL VITAMINS W/ FOLIC ACID TABLET (FP) PO SCH (09:50)
[2022-11-06] MEDS: MELATONIN 5 MG TABLETS PO SCH (21:52)
[2022-11-06] MEDS: THIAMINE HCL 100 MG TABLET (FP) PO SCH (21:53)
[2022-11-07] MEDS: METHOCARBAMOL 500 MG TABLET PO PRN ×2 (06:30→16:52)
[2022-11-07] MEDS: hydrOXYzine PAMOATE 25 MG CAPSULE (FP) PO PRN ×2 (06:31→16:53)
[2022-11-07 07:31] VITALS: TEMP 96.5
[2022-11-07] MEDS: INSULIN SLIDING SCALE (NOVOLOG) 1 VIAL SQ SCH ×2 (07:57→17:04)
[2022-11-07] MEDS: LISINOPRIL 20 MG TABLET PO SCH (10:12)
[2022-11-07] MEDS: PRENATAL VITAMINS W/ FOLIC ACID TABLET (FP) PO SCH (10:12)
[2022-11-07] MEDS: NICOTINE 10 MG CARTRIDGE (INHALER) IH PRN ×2 (10:13→16:54)
[2022-11-07] MEDS: BUPRENORPHINE/NALOXONE 8 MG/2 MG FILM PACKET SL SCH ×2 (10:17→10:39)
[2022-11-07] MEDS: THIAMINE HCL 100 MG TABLET (FP) PO SCH (22:20)
[2022-11-07] MEDS: MELATONIN 5 MG TABLETS PO SCH (22:20)
[2022-11-08] MEDS: INSULIN SLIDING SCALE (NOVOLOG) 1 VIAL SQ SCH (07:50)
[2022-11-08] MEDS: PRENATAL VITAMINS W/ FOLIC ACID TABLET (FP) PO SCH (09:24)
[2022-11-08] MEDS: BUPRENORPHINE/NALOXONE 8 MG/2 MG FILM PACKET SL SCH (09:25)
[2022-11-08] MEDS: LISINOPRIL 20 MG TABLET PO SCH (09:25)
[2022-11-08] MEDS: METHOCARBAMOL 500 MG TABLET PO PRN (09:25)
[2022-11-08 10:48] VITALS: BP 139/83; PULSE 96
== END 2022-11-08 10:42 | disposition home or self-care (01) | DRG 772 ==
LOC: YASAS 14:44 → Y5N 14:46
PROVIDERS: ADMIT Allergy & Immunology; ATTEND Psychiatry & Neurology Pain Medicine
PROC: HZ42ZZZ Group Counseling for Substance Abuse Treatment, Cognitive-Behavioral (ICD-10-PCS; principal; 2022-10-27)
DX: F11.20 Opioid dependence, uncomplicated (principal); F10.20 Alcohol dependence, uncomplicated; F17.210 Nicotine dependence, cigarettes, uncomplicated; E72.20 Disorder of urea cycle metabolism, unspecified; E11.9 Type 2 diabetes mellitus without complications; Z86.19 Personal history of other infectious and parasitic diseases; Z88.8 Allergy status to other drugs, medicaments and biological substances
CPT/HCPCS: 36415; 82140; 86803; 87522

== ENCOUNTER 2023-01-09 11:08 | Inpatient (IN) | payer OTHER ==
[2023-01-09 11:25] VITALS: BMI 31.6
[2023-01-09] MEDS ORDERED: POLYETHYLENE GLYCOL (HEALTHYLAX) 3350 17 GM PACKET PO PRN (13:04)
[2023-01-09] MEDS ORDERED: BISMUTH SUBSALICYLATE 262 MG/15 ML BTL PO PRN (13:04)
[2023-01-09] MEDS ORDERED: NICOTINE POLACRILEX 2 MG GUM BUC PRN (13:04)
[2023-01-09] MEDS ORDERED: IBUPROFEN 600 MG TABLET (FP) PO PRN (13:04)
[2023-01-09] MEDS ORDERED: MAGNESIUM HYDROX 2400MG/30ML ORAL SUSPENSION 30 ML CUP PO PRN (13:04)
[2023-01-09] MEDS ORDERED: NALOXONE HCL (KLOXXADO) 8 MG SPRAY NS PRN (13:04)
[2023-01-09] MEDS ORDERED: BENZOCAINE/MENTHOL (CHLORASEPTIC ) LOZENGE MM PRN (13:04)
[2023-01-09] MEDS ORDERED: DICYCLOMINE HCL 10 MG CAPSULE PO PRN (13:04)
[2023-01-09] MEDS ORDERED: IBUPROFEN 400 MG TABLET (FP) PO PRN (13:04)
[2023-01-09] MEDS ORDERED: LOPERAMIDE HCL 2 MG CAPSULE PO PRN (13:04)
[2023-01-09] MEDS ORDERED: ONDANSETRON *ODT* 4 MG TABLET SL PRN (13:04)
[2023-01-09] MEDS ORDERED: BENZONATATE 200 MG CAPSULE PO PRN (13:04)
[2023-01-09] MEDS ORDERED: guaiFENesin 600 MG TABLET.ER (FP) PO PRN (13:04)
[2023-01-09] MEDS ORDERED: NALOXONE HCL 0.4 MG/ML VIAL IM PRN (13:04)
[2023-01-09] MEDS ORDERED: ACETAMINOPHEN 325 MG TABLET (FP) PO PRN (13:04)
[2023-01-09] MEDS ORDERED: MAG HYDROX/AL HYDROX/SIMETH 30 ML UNIT-DOSE CUP PO PRN (13:04)
[2023-01-09] MEDS ORDERED: cloNIDine HCL 0.1 MG TABLET PO PRN (13:08)
[2023-01-09] MEDS ORDERED: methaDONE HCL 10 MG TABLET (FOR DETOX USE ONLY) PO ONE (13:08)
[2023-01-09] MEDS ORDERED: methaDONE HCL 10 MG TABLET (FOR DETOX USE ONLY) ONE (14:58)
[2023-01-09] MEDS: THIAMINE HCL 100 MG TABLET (FP) PO SCH (22:11)
[2023-01-09] MEDS: MELATONIN 5 MG TABLETS PO SCH (22:11)
[2023-01-09] MEDS: QUEtiapine FUMARATE 50 MG TABLET PO SCH (22:11)
[2023-01-09] MEDS: METHOCARBAMOL 500 MG TABLET PO PRN (22:13)
[2023-01-10] MEDS: NICOTINE 21 MG/24 HOURS TOPICAL PATCH TD SCH (10:17)
[2023-01-10] MEDS: METHOCARBAMOL 500 MG TABLET PO PRN ×2 (10:18→22:18)
[2023-01-10] MEDS: PRENATAL VITAMINS W/ FOLIC ACID TABLET (FP) PO SCH (10:19)
[2023-01-10 11:28] LABS: HEMATOCRIT 44.5 % (35.4-49); MCH 27.7 pg (25.7-33.7); MCHC 33.8 g/dl (32.0-35.9); MEAN PLT VOLUME 10.1 fl (7.5-11.1); PLATELET COUNT 231 10^3/uL (134-434); RBC 5.43 M/mm3 (4.00-5.60); RDW 14.4 % (11.9-15.9)
[2023-01-10 11:33] LABS: POTASSIUM 4.4 mmol/L (3.5-5.1)
[2023-01-10 11:43] LABS: CALCIUM 9.2 mg/dL (8.5-10.1)
[2023-01-10 11:44] LABS: ALBUMIN 3.7 g/dl (3.4-5.0); BLOOD UREA NITROGEN 14.8 mg/dL (7-18)
[2023-01-10 11:46] LABS: CREATININE 0.9 mg/dL (0.55-1.3)
[2023-01-10 11:48] LABS: BILIRUBIN,TOTAL 0.4 mg/dL (0.2-1); TOT PROT 7.2 g/dl (6.4-8.2)
[2023-01-10] MEDS: THIAMINE HCL 100 MG TABLET (FP) PO SCH (22:18)
[2023-01-10] MEDS: QUEtiapine FUMARATE 50 MG TABLET PO SCH (22:19)
[2023-01-10] MEDS: MELATONIN 5 MG TABLETS PO SCH (22:19)
[2023-01-11] MEDS: diazePAM 5 MG TABLET PO PRN ×4 (08:37→22:12)
[2023-01-11] MEDS: METHOCARBAMOL 500 MG TABLET PO PRN (10:00)
[2023-01-11] MEDS: PRENATAL VITAMINS W/ FOLIC ACID TABLET (FP) PO SCH (10:00)
[2023-01-11] MEDS ORDERED: methaDONE HCL 10 MG TABLET (FOR DETOX USE ONLY) PO ONE (10:00)
[2023-01-11] MEDS: NICOTINE 21 MG/24 HOURS TOPICAL PATCH TD SCH (10:01)
[2023-01-11] MEDS: THIAMINE HCL 100 MG TABLET (FP) PO SCH (22:11)
[2023-01-11] MEDS: QUEtiapine FUMARATE 50 MG TABLET PO SCH (22:11)
[2023-01-12] MEDS: MELATONIN 5 MG TABLETS PO SCH ×2 (00:05→20:59)
[2023-01-12] MEDS: diazePAM 5 MG TABLET PO PRN ×4 (08:02→20:55)
[2023-01-12] MEDS: PRENATAL VITAMINS W/ FOLIC ACID TABLET (FP) PO SCH (10:15)
[2023-01-12] MEDS: METHOCARBAMOL 500 MG TABLET PO PRN (10:15)
[2023-01-12] MEDS: NICOTINE 21 MG/24 HOURS TOPICAL PATCH TD SCH (10:16)
[2023-01-12] MEDS: QUEtiapine FUMARATE 50 MG TABLET PO SCH (20:59)
[2023-01-12] MEDS: THIAMINE HCL 100 MG TABLET (FP) PO SCH (20:59)
[2023-01-13] MEDS: diazePAM 5 MG TABLET PO PRN (07:18)
[2023-01-13] MEDS ORDERED: methaDONE HCL 10 MG TABLET (FOR DETOX USE ONLY) PO ONE (10:00)
[2023-01-13] MEDS: METHOCARBAMOL 500 MG TABLET PO PRN ×2 (10:08→22:06)
[2023-01-13] MEDS: PRENATAL VITAMINS W/ FOLIC ACID TABLET (FP) PO SCH (10:08)
[2023-01-13] MEDS: NICOTINE 21 MG/24 HOURS TOPICAL PATCH TD SCH (10:09)
[2023-01-13 11:54] LABS: BASO % 0.3 % (0-2.0); EOS % 3.1 % (0-4.5); HEMATOCRIT 43.5 % (35.4-49); HEMOGLOBIN 14.9 GM/dL (11.7-16.9); LYMPH % 20.4 % (8-40); MCH 27.5 pg (25.7-33.7); MCHC 34.2 g/dl (32.0-35.9); MEAN CELL VOLUME 80.5 fl (80-96); MEAN PLT VOLUME 9.3 fl (7.5-11.1); MONO % 8.6 % (3.8-10.2); NEUT % 67.6 % (42.8-82.8); PLATELET COUNT 257 10^3/uL (134-434); RDW 14.1 % (11.9-15.9); WHITE BLOOD COUNT 12.7 K/mm3 (4.0-10.0)
[2023-01-13 20:51] VITALS: RESP 17
[2023-01-13] MEDS: THIAMINE HCL 100 MG TABLET (FP) PO SCH (22:06)
[2023-01-13] MEDS: QUEtiapine FUMARATE 50 MG TABLET PO SCH (22:06)
[2023-01-13] MEDS: MELATONIN 5 MG TABLETS PO SCH (22:06)
[2023-01-14] MEDS: METHOCARBAMOL 500 MG TABLET PO PRN (09:06)
[2023-01-14 09:07] VITALS: BP 165/99; PULSE 103; TEMP 98.1
[2023-01-14] MEDS: NICOTINE 21 MG/24 HOURS TOPICAL PATCH TD SCH (11:00)
[2023-01-14] MEDS: PRENATAL VITAMINS W/ FOLIC ACID TABLET (FP) PO SCH (11:00)
== END 2023-01-14 10:05 | disposition home or self-care (01) | DRG 773 ==
LOC: YASAS 11:08 → Y6N 15:24
PROVIDERS: ADMIT Allergy & Immunology; ATTEND Surgery
PROC: HZ2ZZZZ Detoxification Services for Substance Abuse Treatment (ICD-10-PCS; principal; 2023-01-09)
DX: F11.23 Opioid dependence with withdrawal (principal); F14.20 Cocaine dependence, uncomplicated; F17.210 Nicotine dependence, cigarettes, uncomplicated; F41.9 Anxiety disorder, unspecified; F31.9 Bipolar disorder, unspecified; I10 Essential (primary) hypertension; G47.00 Insomnia, unspecified; Z91.148 Patient's other noncompliance with medication regimen for other reason; Z88.8 Allergy status to other drugs, medicaments and biological substances; Z91.51 Personal history of suicidal behavior; Z56.0 Unemployment, unspecified; Z59.00 Homelessness unspecified
CPT/HCPCS: 36415; 80053; 80305; 83036; 85025; 85027; 86780; 87635; 87811

== ENCOUNTER 2023-03-13 14:31 | Inpatient (IN) | payer OTHER ==
[2023-03-13 16:15] VITALS: BMI 29.9
[2023-03-13] MEDS ORDERED: ACETAMINOPHEN 325 MG TABLET (FP) PO PRN (17:22)
[2023-03-13] MEDS ORDERED: DICYCLOMINE HCL 10 MG CAPSULE PO PRN (17:22)
[2023-03-13] MEDS ORDERED: BISMUTH SUBSALICYLATE 524 MG/30 ML PO PRN (17:22)
[2023-03-13] MEDS ORDERED: NALOXONE HCL 0.4 MG/ML VIAL IM PRN (17:22)
[2023-03-13] MEDS ORDERED: LOPERAMIDE HCL 2 MG CAPSULE PO PRN (17:22)
[2023-03-13] MEDS ORDERED: BENZOCAINE/MENTHOL (CHLORASEPTIC ) LOZENGE MM PRN (17:22)
[2023-03-13] MEDS ORDERED: POLYETHYLENE GLYCOL (HEALTHYLAX) 3350 17 GM PACKET PO PRN (17:22)
[2023-03-13] MEDS ORDERED: IBUPROFEN 600 MG TABLET (FP) PO PRN (17:22)
[2023-03-13] MEDS ORDERED: NALOXONE HCL (KLOXXADO) 8 MG SPRAY NS PRN (17:22)
[2023-03-13] MEDS ORDERED: guaiFENesin 600 MG TABLET.ER (FP) PO PRN (17:22)
[2023-03-13] MEDS ORDERED: NICOTINE POLACRILEX 2 MG GUM BUC PRN (17:22)
[2023-03-13] MEDS ORDERED: P-EPHED 60MG/TRIPROLIDI 2.5MG TABLET PO PRN (17:22)
[2023-03-13] MEDS ORDERED: IBUPROFEN 400 MG TABLET (FP) PO PRN (17:22)
[2023-03-13] MEDS ORDERED: ONDANSETRON *ODT* 4 MG TABLET SL PRN (17:22)
[2023-03-13] MEDS ORDERED: MAGNESIUM HYDROX 2400MG/30ML ORAL SUSPENSION 30 ML CUP PO PRN (17:22)
[2023-03-13] MEDS ORDERED: hydrOXYzine PAMOATE 25 MG CAPSULE (FP) PO PRN (17:22)
[2023-03-13] MEDS ORDERED: BENZONATATE 200 MG CAPSULE PO PRN (17:22)
[2023-03-13] MEDS ORDERED: diazePAM 5 MG TABLET PO ONE (17:45)
[2023-03-13] MEDS ORDERED: diazePAM 5 MG TABLET ONE (18:53)
[2023-03-13] MEDS: diazePAM 5 MG TABLET PO SCH (22:09)
[2023-03-13] MEDS: MELATONIN 5 MG TABLETS PO SCH (22:10)
[2023-03-13] MEDS: METHOCARBAMOL 500 MG TABLET PO PRN (22:10)
[2023-03-13] MEDS: THIAMINE HCL 100 MG TABLET (FP) PO SCH (22:10)
[2023-03-14] MEDS: diazePAM 5 MG TABLET PO SCH ×4 (05:37→22:10)
[2023-03-14] MEDS ORDERED: methaDONE HCL 10 MG TABLET PO SCH (08:23)
[2023-03-14] MEDS: PRENATAL VITAMINS W/ FOLIC ACID TABLET (FP) PO SCH (10:05)
[2023-03-14] MEDS: NICOTINE 7 MG/24 HOURS TOPICAL PATCH TD SCH (10:06)
[2023-03-14] MEDS: LISINOPRIL 20 MG TABLET PO SCH (10:06)
[2023-03-14 10:37] LABS: HEMATOCRIT 40.6 % (35.4-49); HEMOGLOBIN 13.7 GM/dL (11.7-16.9); MCH 26.9 pg (25.7-33.7); MCHC 33.7 g/dl (32.0-35.9); MEAN CELL VOLUME 79.9 fl (80-96); MEAN PLT VOLUME 9.3 fl (7.5-11.1); PLATELET COUNT 244 10^3/uL (134-434); RBC 5.08 M/mm3 (4.00-5.60); RDW 12.9 % (11.9-15.9); WHITE BLOOD COUNT 28.5 K/mm3 (4.0-10.0)
[2023-03-14 10:59] LABS: POTASSIUM 3.6 mmol/L (3.5-5.1)
[2023-03-14 11:02] LABS: BLOOD UREA NITROGEN 13.9 mg/dL (7-18); CALCIUM 8.4 mg/dL (8.5-10.1)
[2023-03-14 11:05] LABS: CREATININE 0.8 mg/dL (0.55-1.3)
[2023-03-14 11:06] LABS: BILIRUBIN,TOTAL 0.5 mg/dL (0.2-1)
[2023-03-14 11:07] LABS: TOT PROT 6.7 g/dl (6.4-8.2)
[2023-03-14] MEDS: diazePAM 5 MG TABLET PO PRN ×2 (13:50→19:17)
[2023-03-14 19:41] LABS: PH,URINE 7.5 (5.0-8.0); URINE APPEARANCE CLEAR; URINE BILIRUBIN NEGATIVE (NEGATIVE); URINE COLOR YELLOW; URINE GLUCOSE (UA) NEGATIVE (NEGATIVE); URINE KETONE NEGATIVE (NEGATIVE); URINE LEUK ESTERASE NEGATIVE (NEGATIVE); URINE NITRITE NEGATIVE (NEGATIVE); URINE PROTEIN NEGATIVE (NEGATIVE)
[2023-03-14] MEDS: MAG HYDROX/AL HYDROX/SIMETH 30 ML UNIT-DOSE CUP PO PRN (21:41)
[2023-03-14] MEDS: QUEtiapine FUMARATE 50 MG TABLET PO PRN (22:10)
[2023-03-14] MEDS: THIAMINE HCL 100 MG TABLET (FP) PO SCH (22:10)
[2023-03-14] MEDS: MELATONIN 5 MG TABLETS PO SCH (22:10)
[2023-03-14] MEDS: METHOCARBAMOL 500 MG TABLET PO PRN (22:11)
[2023-03-15] MEDS: diazePAM 5 MG TABLET PO SCH ×3 (05:20→22:06)
[2023-03-15] MEDS: PRENATAL VITAMINS W/ FOLIC ACID TABLET (FP) PO SCH (10:25)
[2023-03-15] MEDS: NICOTINE 7 MG/24 HOURS TOPICAL PATCH TD SCH (10:26)
[2023-03-15] MEDS: LISINOPRIL 20 MG TABLET PO SCH (10:26)
[2023-03-15] MEDS: diazePAM 5 MG TABLET PO PRN ×3 (10:28→19:54)
[2023-03-15 10:58] LABS: HEMATOCRIT 40.2 % (35.4-49); HEMOGLOBIN 13.7 GM/dL (11.7-16.9); MCH 27.4 pg (25.7-33.7); MEAN CELL VOLUME 80.5 fl (80-96); MEAN PLT VOLUME 9.2 fl (7.5-11.1); PLATELET COUNT 283 10^3/uL (134-434); RDW 12.8 % (11.9-15.9); WHITE BLOOD COUNT 25.2 K/mm3 (4.0-10.0)
[2023-03-15 11:55] LABS: ANISOCYTOSIS 0; HELMET CELLS 0; HOWELL-JOLLY BODIES 0; MACROCYTOSIS 0; OVALOCYTE 0; ROULEAU 0; SICKELED CELLS 0; TARGET CELLS 0; TEAR DROP CELLS 0; TOXIC GRANULATION 0
[2023-03-15] MEDS: THIAMINE HCL 100 MG TABLET (FP) PO SCH (22:07)
[2023-03-15] MEDS: MELATONIN 5 MG TABLETS PO SCH (22:07)
[2023-03-15] MEDS: MAG HYDROX/AL HYDROX/SIMETH 30 ML UNIT-DOSE CUP PO PRN (22:07)
[2023-03-15] MEDS: QUEtiapine FUMARATE 50 MG TABLET PO PRN (22:07)
[2023-03-15] MEDS: METHOCARBAMOL 500 MG TABLET PO PRN (22:07)
[2023-03-16] MEDS: diazePAM 5 MG TABLET PO SCH ×2 (05:33→17:09)
[2023-03-16] MEDS: NICOTINE 7 MG/24 HOURS TOPICAL PATCH TD SCH (10:24)
[2023-03-16] MEDS: LISINOPRIL 20 MG TABLET PO SCH (10:24)
[2023-03-16] MEDS: PRENATAL VITAMINS W/ FOLIC ACID TABLET (FP) PO SCH (10:24)
[2023-03-16] MEDS: diazePAM 5 MG TABLET PO PRN ×2 (10:25→14:58)
[2023-03-16 11:41] LABS: HEMATOCRIT 42.2 % (35.4-49); MCH 26.7 pg (25.7-33.7); MCHC 33.2 g/dl (32.0-35.9); MEAN CELL VOLUME 80.5 fl (80-96); MEAN PLT VOLUME 9.2 fl (7.5-11.1); PLATELET COUNT 322 10^3/uL (134-434); RBC 5.25 M/mm3 (4.00-5.60); RDW 13.2 % (11.9-15.9); WHITE BLOOD COUNT 21.2 K/mm3 (4.0-10.0)
[2023-03-16 12:20] LABS: ANISOCYTOSIS 1+; MACROCYTOSIS 0; TARGET CELLS 1+
[2023-03-16 17:16] VITALS: RESP 18
[2023-03-16] MEDS: QUEtiapine FUMARATE 50 MG TABLET PO PRN (21:45)
[2023-03-16] MEDS: MELATONIN 5 MG TABLETS PO SCH (21:45)
[2023-03-16] MEDS: THIAMINE HCL 100 MG TABLET (FP) PO SCH (21:46)
[2023-03-16] MEDS: METHOCARBAMOL 500 MG TABLET PO PRN (21:46)
[2023-03-17] MEDS ORDERED: diazePAM 5 MG TABLET PO ONE (06:00)
[2023-03-17 06:34] VITALS: BP 107/61; PULSE 73; TEMP 97.7
[2023-03-17] MEDS: LISINOPRIL 20 MG TABLET PO SCH (09:05)
[2023-03-17] MEDS: PRENATAL VITAMINS W/ FOLIC ACID TABLET (FP) PO SCH (09:05)
[2023-03-17] MEDS: NICOTINE 7 MG/24 HOURS TOPICAL PATCH TD SCH (09:05)
== END 2023-03-17 08:57 | disposition home or self-care (01) | DRG 773 ==
LOC: YASAS 14:31 → Y3N 18:39
PROVIDERS: ADMIT Allergy & Immunology; ATTEND Surgery
PROC: HZ2ZZZZ Detoxification Services for Substance Abuse Treatment (ICD-10-PCS; principal; 2023-03-13)
DX: F10.230 Alcohol dependence with withdrawal, uncomplicated (principal); F11.20 Opioid dependence, uncomplicated; F14.20 Cocaine dependence, uncomplicated; F12.20 Cannabis dependence, uncomplicated; F17.210 Nicotine dependence, cigarettes, uncomplicated; F19.282 Other psychoactive substance dependence with psychoactive substance-induced sleep disorder; F19.24 Other psychoactive substance dependence with psychoactive substance-induced mood disorder; D72.829 Elevated white blood cell count, unspecified; I10 Essential (primary) hypertension; Z86.59 Personal history of other mental and behavioral disorders; Z56.0 Unemployment, unspecified; Z59.00 Homelessness unspecified; Z88.8 Allergy status to other drugs, medicaments and biological substances
CPT/HCPCS: 36415; 80053; 81003; 85025; 85027; 86780; 87635

== ENCOUNTER 2023-07-24 11:08 | Inpatient (IN) | payer OTHER ==
[2023-07-24 11:40] VITALS: BMI 32.4
[2023-07-24] MEDS ORDERED: ACETAMINOPHEN 325 MG TABLET (FP) PO PRN (12:26)
[2023-07-24] MEDS ORDERED: IBUPROFEN 400 MG TABLET (FP) PO PRN (12:26)
[2023-07-24] MEDS ORDERED: MAG HYDROX/AL HYDROX/SIMETH 30 ML UNIT-DOSE CUP PO PRN (12:26)
[2023-07-24] MEDS ORDERED: ONDANSETRON *ODT* 4 MG TABLET SL PRN (12:26)
[2023-07-24] MEDS ORDERED: BENZONATATE 200 MG CAPSULE PO PRN (12:26)
[2023-07-24] MEDS ORDERED: BENZOCAINE/MENTHOL (CHLORASEPTIC ) LOZENGE MM PRN (12:26)
[2023-07-24] MEDS ORDERED: MAGNESIUM HYDROX 2400MG/30ML ORAL SUSPENSION 30 ML CUP PO PRN (12:26)
[2023-07-24] MEDS ORDERED: POLYETHYLENE GLYCOL (HEALTHYLAX) 3350 17 GM PACKET PO PRN (12:26)
[2023-07-24] MEDS ORDERED: LOPERAMIDE HCL 2 MG CAPSULE PO PRN (12:26)
[2023-07-24] MEDS ORDERED: NALOXONE HCL 0.4 MG/ML VIAL IM PRN (12:26)
[2023-07-24] MEDS ORDERED: guaiFENesin 600 MG TABLET.ER (FP) PO PRN (12:26)
[2023-07-24] MEDS ORDERED: BISMUTH SUBSALICYLATE 524 MG/30 ML PO PRN (12:26)
[2023-07-24] MEDS ORDERED: DICYCLOMINE HCL 10 MG CAPSULE PO PRN (12:26)
[2023-07-24] MEDS ORDERED: NALOXONE HCL (KLOXXADO) 8 MG SPRAY NS PRN (12:26)
[2023-07-24] MEDS ORDERED: IBUPROFEN 600 MG TABLET (FP) PO PRN (12:26)
[2023-07-24] MEDS: PRENATAL VITAMINS W/ FOLIC ACID TABLET (FP) PO SCH (13:46)
[2023-07-24] MEDS: LISINOPRIL 20 MG TABLET PO SCH (13:46)
[2023-07-24] MEDS: LORazepam 1 MG TABLET PO PRN (14:02)
[2023-07-24] MEDS ORDERED: LISINOPRIL 10 MG TABLET ONE (14:07)
[2023-07-24] MEDS ORDERED: LORazepam 1 MG TABLET ONE (14:07)
[2023-07-24] MEDS ORDERED: PRENATAL VITAMINS W/ FOLIC ACID TABLET (FP) PO ONE (14:07)
[2023-07-24] MEDS: LORazepam 2 MG TABLET PO SCH (17:25)
[2023-07-24] MEDS: THIAMINE HCL 100 MG TABLET (FP) PO SCH (22:25)
[2023-07-24] MEDS: hydrOXYzine PAMOATE 25 MG CAPSULE (FP) PO PRN (22:25)
[2023-07-24] MEDS: METHOCARBAMOL 500 MG TABLET PO PRN (22:25)
[2023-07-24] MEDS: MELATONIN 5 MG TABLETS PO SCH (22:25)
[2023-07-25 06:46] VITALS: BP 107/57; PULSE 73; RESP 16; TEMP 97.7
[2023-07-25] MEDS ORDERED: NICOTINE 14 MG/24 HOURS TOPICAL PATCH TD SCH (10:00)
[2023-07-25 11:27] LABS: HEMATOCRIT 43.7 % (35.4-49); HEMOGLOBIN 14.8 GM/dL (11.7-16.9); MCH 27.2 pg (25.7-33.7); MCHC 33.8 g/dl (32.0-35.9); MEAN CELL VOLUME 80.4 fl (80-96); MEAN PLT VOLUME 9.9 fl (7.5-11.1); PLATELET COUNT 229 10^3/uL (134-434); RBC 5.43 M/mm3 (4.00-5.60); RDW 13.6 % (11.9-15.9); WHITE BLOOD COUNT 14.3 K/mm3 (4.0-10.0)
[2023-07-25 12:05] LABS: CHLORIDE 108 mmol/L (98-107); POTASSIUM 4.4 mmol/L (3.5-5.1); SODIUM 140 mmol/L (136-145)
[2023-07-25 12:07] LABS: ALBUMIN 3.3 g/dl (3.4-5.0); ANION GAP 7 mmol/L (4-13); CALCIUM 8.4 mg/dL (8.5-10.1); CO2 25 mmol/L (21-32)
[2023-07-25 12:08] LABS: BLOOD UREA NITROGEN 16.5 mg/dL (7-18); GLUCOSE,RANDOM 88 mg/dL (74-106)
[2023-07-25 12:10] LABS: CREATININE 0.8 mg/dL (0.55-1.3)
[2023-07-25 12:11] LABS: SGOT/AST 17 U/L (15-37); SGPT/ALT 23 U/L (13-61)
[2023-07-25 12:12] LABS: BILIRUBIN,TOTAL 0.3 mg/dL (0.2-1); TOT PROT 6.6 g/dl (6.4-8.2)
[2023-07-25 12:13] LABS: ALK PHOS 120 U/L (45-117)
[2023-07-26] MEDS ORDERED: LORazepam 1 MG TABLET PO SCH (05:00)
[2023-07-27] MEDS ORDERED: LORazepam 0.5 MG TABLET PO PRN
[2023-07-27] MEDS ORDERED: LORazepam 0.5 MG TABLET PO SCH (05:00)
[2023-07-28] MEDS ORDERED: LORazepam 0.5 MG TABLET PO ONE (05:00)
== END 2023-07-25 07:55 | disposition left against medical advice (07) | DRG 770 ==
LOC: YASAS 11:08 → Y6N 12:40
PROVIDERS: ADMIT Allergy & Immunology; ATTEND Surgery
PROC: HZ2ZZZZ Detoxification Services for Substance Abuse Treatment (ICD-10-PCS; principal; 2023-07-24)
DX: F10.230 Alcohol dependence with withdrawal, uncomplicated (principal); F13.20 Sedative, hypnotic or anxiolytic dependence, uncomplicated; F11.20 Opioid dependence, uncomplicated; F14.20 Cocaine dependence, uncomplicated; F17.210 Nicotine dependence, cigarettes, uncomplicated; F31.9 Bipolar disorder, unspecified; F19.282 Other psychoactive substance dependence with psychoactive substance-induced sleep disorder; F19.24 Other psychoactive substance dependence with psychoactive substance-induced mood disorder; F41.9 Anxiety disorder, unspecified; I10 Essential (primary) hypertension; E11.9 Type 2 diabetes mellitus without complications; Z88.8 Allergy status to other drugs, medicaments and biological substances
CPT/HCPCS: 36415; 80053; 80305; 80307; 85027; 86780; 87635